=== PATIENT | female | born 1990 | race Caucasian/White ===

== ENCOUNTER 2018-06-30 15:24 | Emergency (ER) | payer MEDICAID, SELFPAY ==
[2018-06-30 15:43] VITALS: BP 127/79; PULSE 66; RESP 18; TEMP 36.7; O2SAT 98
--- NOTE | 2018-06-30 16:11 | DI.RPTCT_ITS ---
SYMPTOM/DIAGNOSIS: HEADACHE NONCONTRAST HEAD CT: There is no evidence of an intra/extra-axial hemorrhage. The wong white matter differentiation is maintained. There is no edema. The ventricles are normal. There is no skull fracture. The sinuses are normal. There is no evidence of a mastoid effusion. SUMMARY: No acute intracranial abnormality is defined.
--- NOTE | 2018-06-30 16:18 | ED.GENADUL ---
Disposition Clinical Impression: Headache Disposition: HOME Instructions: General Headache (ED) Additional Instructions: Please follow-up with your primary care physician and neurology. Return to the emergency department immediately for any worsening or new concerning symptoms. Referrals: Lauren Dupont NP [Primary Care Provider] - Maria Salcedo MD [ [facility] STAFF PHYSICIAN] - Medical Decision Making - Medical Decision Making 16:25 --27-year-old female here with burning headache over the past 1 month with associated sharp pain with paresthesias effecting fingertips and feet bilaterally. No signs of meningitis or focal deficits on exam. History not consistent with subarachnoid hemorrhage. Plan to proceed to CT head to assess for any mass occupying lesions. Consider idiopathic intracranial hypertension versus cerebral sinus thrombosis. Offered ibuprofen and acetaminophen and patient declined. 18:45 -- CT head interpreted by radiology: negative. Labs reviewed and nondiagnostic. I reassessed patient and discussed diagnostic results. I explained my concerns for disease processes as noted above and answered questions. I offered lumbar puncture and reviewed the risks and benefits of this procedure and patient declined procedure at this time. Patient would prefer to follow-up with neurology. I recommended she return immediately should she have any worsening or new concerning symptoms. Offered work note and patient declined. History of Present Illness - General Chief complaint: Headache Stated complaint: HEADACHE Time Seen by Provider: 06/30/18 15:26 Source: patient, RN notes reviewed Mode of arrival: ambulatory Limitations: no limitations - History of Present Illness Initial comments: 27-year-old female presents with chief complaint of headache. Patient notes a 4/10 discomfort in the top of her head is described as burning and jittery. Pain started about 1 month ago and has persisted. Patient has pain consistently over the past month. She also notes that she experiences intermittent (every few minutes) brief sharp pain in her head with associated paresthesias in the tips of her fingers bilaterally as well as her feet bilaterally with a period of brief blurred vision lasting seconds. Patient has tried taking Tylenol and ibuprofen this does not seem to provide relief. Patient denies associated fever. No neck stiffness. No numbness or weakness. There is mention of genital herpes in the patient's office problem list. Patient denies this and notes that she has never had genital herpes. Patient stopped taking her Adderall about a month ago as she noted the seem to make her symptoms worse. - Related Data FLUoxetine [PROzac] 10 mg PO QAM 11/18/17 Noreth A-Et Estra/Fe Fumarate [Microgestin Fe 1-20 Tablet] 1 tab-cap PO DAILY #3 pack 02/11/18 Allergies Allergy/AdvReac Type Severity Reaction Status Date / Time Penicillins Allergy Unknown unknown, Unverified 06/30/18 15:49 childhood reaction lisdexamfetamine dimesylate AdvReac Intermediate chest Unverified 06/30/18 15:49 [From Vyvanse] discomfort, throbbing H/A, Tingling in Head Review of Systems Constitutional: denies: chills, fever ENT: denies: throat pain Respiratory: denies: cough, shortness of breath Gastrointestinal: denies: abdominal pain, nausea, vomiting Neurological: as per HPI, headache, paresthesias. denies: weakness, numbness Comment: All other systems reviewed and negative Past Medical History - Past Medical History ADHD, pancreatitis idiopathic, left ovarian cyst Surgical history: no surgical history - Social History Smoking status: never smoker Alcohol use: none Drug use: none General Exam - General Limitations: no limitations General appearance: alert, in no apparent distress - Eye Eye exam: Present: PERRL, EOMI, other (No papilledema). Absent: scleral icterus, conjunctival injection, nystagmus Pupils: Present: normal accommodation - ENT ENT exam: Present: normal orophraynx, mucous membranes moist, TM's normal bilaterally - Neck Neck exam: Absent: meningismus, lymphadenopathy, thyromegaly - Respiratory Respiratory exam: Present: normal lung sounds bilaterally. Absent: wheezes, rales, rhonchi - Cardiovascular Cardiovascular Exam: Present: regular rate, normal rhythm, normal heart sounds - GI/Abdominal GI/Abdominal exam: Present: soft, normal bowel sounds. Absent: distended, tenderness, guarding, rebound, rigid - Extremities Exam Extremities exam: Absent: joint swelling - Neurological Exam Neurological exam: Present: alert, CN II-XII intact. Absent: altered, motor sensory deficit - Psychiatric Psychiatric exam: Present: normal affect - Skin Skin exam: Present: warm, dry, intact Course Vital Signs - 24 hr 06/30/18 15:43 Temperature 36.7 C Pulse 66 Respiratory 18 Rate Blood Pressure 127/79 Pulse Oximetry 98
--- NOTE | 2018-06-30 16:25 | ED.GENADUL_ITS ---
Disposition Clinical Impression: Headache Disposition: HOME Instructions: General Headache (ED) Additional Instructions: Please follow-up with your primary care physician and neurology. Return to the emergency department immediately for any worsening or new concerning symptoms. Referrals: Lauren Dupont NP [Primary Care Provider] - Maria Salcedo MD [ [facility] STAFF PHYSICIAN] - Medical Decision Making - Medical Decision Making 16:25 --27-year-old female here with burning headache over the past 1 month with associated sharp pain with paresthesias effecting fingertips and feet bilaterally. No signs of meningitis or focal deficits on exam. History not consistent with subarachnoid hemorrhage. Plan to proceed to CT head to assess for any mass occupying lesions. Consider idiopathic intracranial hypertension versus cerebral sinus thrombosis. Offered ibuprofen and acetaminophen and patient declined. 18:45 -- CT head interpreted by radiology: negative. Labs reviewed and nondiagnostic. I reassessed patient and discussed diagnostic results. I explained my concerns for disease processes as noted above and answered questions. I offered lumbar puncture and reviewed the risks and benefits of this procedure and patient declined procedure at this time. Patient would prefer to follow-up with neurology. I recommended she return immediately should she have any worsening or new concerning symptoms. Offered work note and patient declined. History of Present Illness - General Chief complaint: Headache Stated complaint: HEADACHE Time Seen by Provider: 06/30/18 15:26 Source: patient, RN notes reviewed Mode of arrival: ambulatory Limitations: no limitations - History of Present Illness Initial comments: 27-year-old female presents with chief complaint of headache. Patient notes a 4 /10 discomfort in the top of her head is described as burning and jittery. Pain started about 1 month ago and has persisted. Patient has pain consistently over the past month. She also notes that she experiences intermittent (every few minutes) brief sharp pain in her head with associated paresthesias in the tips of her fingers bilaterally as well as her feet bilaterally with a period of brief blurred vision lasting seconds. Patient has tried taking Tylenol and ibuprofen this does not seem to provide relief. Patient denies associated fever. No neck stiffness. No numbness or weakness. There is mention of genital herpes in the patient's office problem list. Patient denies this and notes that she has never had genital herpes. Patient stopped taking her Adderall about a month ago as she noted the seem to make her symptoms worse. - Related Data FLUoxetine [PROzac] 10 mg PO QAM 11/18/17 Noreth A-Et Estra/Fe Fumarate [Microgestin Fe 1-20 Tablet] 1 tab-cap PO DAILY # 3 pack 02/11/18 Allergies Allergy/AdvReac Type Severity Reaction Status Date / Time Penicillins Allergy Unknown unknown, Unverified 06/30/18 15:49 childhood reaction lisdexamfetamine dimesylate AdvReac Intermediate chest Unverified 06/30/18 15:49 [From Vyvanse] discomfort, throbbing H/A, Tingling in Head Review of Systems Constitutional: denies: chills, fever ENT: denies: throat pain Respiratory: denies: cough, shortness of breath Gastrointestinal: denies: abdominal pain, nausea, vomiting Neurological: as per HPI, headache, paresthesias. denies: weakness, numbness Comment: All other systems reviewed and negative Past Medical History - Past Medical History ADHD, pancreatitis idiopathic, left ovarian cyst Surgical history: no surgical history - Social History Smoking status: never smoker Alcohol use: none Drug use: none General Exam - General Limitations: no limitations General appearance: alert, in no apparent distress - Eye Eye exam: Present: PERRL, EOMI, other (No papilledema). Absent: scleral icterus , conjunctival injection, nystagmus Pupils: Present: normal accommodation - ENT ENT exam: Present: normal orophraynx, mucous membranes moist, TM's normal bilaterally - Neck Neck exam: Absent: meningismus, lymphadenopathy, thyromegaly - Respiratory Respiratory exam: Present: normal lung sounds bilaterally. Absent: wheezes, rales, rhonchi - Cardiovascular Cardiovascular Exam: Present: regular rate, normal rhythm, normal heart sounds - GI/Abdominal GI/Abdominal exam: Present: soft, normal bowel sounds. Absent: distended, tenderness, guarding, rebound, rigid - Extremities Exam Extremities exam: Absent: joint swelling - Neurological Exam Neurological exam: Present: alert, CN II-XII intact. Absent: altered, motor sensory deficit - Psychiatric Psychiatric exam: Present: normal affect - Skin Skin exam: Present: warm, dry, intact Course Vital Signs - 24 hr 06/30/18 15:43 Temperature 36.7 C Pulse 66 Respiratory 18 Rate Blood Pressure 127/79 Pulse Oximetry 98
[2018-06-30 16:48] LABS: Abs Immature Grans 0.01 k/cumm (0.0-0.09); Absolute Basophil Count 0.02 k/cumm (0.0-0.2); Absolute Eosinophil Count 0.07 k/cumm (0.0-0.7); Absolute Neutrophil Count 5.94 k/cumm (1.2-6.7); Basophils % 0.2; Eosinophils % 0.8; HCT 41.1 % (36.0-46.0); HGB 13.7 g/dL (12.0-15.5); Immature Grans % 0.1; Lymphocytes % 22.5; Mean Corp. HGB Concentration 33.3 g/dL (32.0-36.0); Mean Corpuscular Hemoglobin 28.1 pg (27.0-33.0); Mean Corpuscular Volume 84.2 fL (80-95); Mean Platelet Volume 10.8 fL (8.0-11.0); Monocytes % 5.9; Neutrophils % 70.5; Platelet Count 260 x1000/uL (130-400); RBC 4.88 m/cumm (4.00-5.20); RBC Distribution Width 14.1 % (11.7-14.6); White Blood Cell Count 8.44 k/cumm (4.4-10.8)
[2018-06-30 17:15] LABS: ALT 32 U/L (12-78); AST 23 U/L (15-37); Albumin 4.1 g/dL (3.4-5.0); Alkaline Phosphatase 70 U/L (46-116); BUN 17 mg/dL (7-18); Bilirubin, Total 0.1 mg/dL (0.2-1.0); CREATININE 0.73 mg/dL (0.55-1.02); Calcium 9.2 mg/dL (8.5-10.1); Chloride 103 mmol/L (98-107); Glucose 87 mg/dL (70-100); Potassium 3.9 mmol/L (3.5-5.1); Sodium 139 mmol/L (136-145); TSH (W/Ref FT4) 2.02 uIU/mL (0.358-3.74)
--- NOTE | 2018-06-30 17:22 | DI.VRAD_ITS ---
EXAM: CT Head Without Intravenous Contrast EXAM DATE/TIME: 06/30/2018 4:14 PM CLINICAL HISTORY: 27 years old, female; Signs and symptoms; Other: Headache TECHNIQUE: Axial computed tomography images of the head/brain without intravenous contrast. All CT scans at this facility use at least one of these dose optimization techniques: automated exposure control; mA and/or kV adjustment per patient size (includes targeted exams where dose is matched to clinical indication); or iterative reconstruction. Coronal and sagittal reformatted images were created and reviewed. COMPARISON: No relevant prior studies available. FINDINGS: Brain: Normal. No hemorrhage. No significant white matter disease. No edema. Ventricles: Normal. No ventriculomegaly. Bones/joints: Normal. No acute fracture. Sinuses: Normal as visualized. No acute sinusitis. Mastoid air cells: Normal as visualized. No mastoid effusion. Soft tissues: Normal. IMPRESSION: No acute findings. Dictated and Authenticated by: Manish Ratliff MD. Ordering:FREDDY DENNIS MD
[2018-06-30] MEDS: Acetaminophen 325 MG TAB 650 MG (18:35)
== END 2018-06-30 18:57 | disposition home or self-care (01) ==
PROVIDERS: Emergency Provider Student in an Organized Health Care Education/Training Program; PCP Nurse Practitioner Family
DX: R51 Headache (principal); R20.2 Paresthesia of skin; Z53.29 Procedure and treatment not carried out because of patient's decision for other reasons
CPT/HCPCS: 36415; 80053; 81025; 99284; 70450; 84443; 85025

== ENCOUNTER → 2018-07-08 00:32 | Outpatient (CLI) | payer MEDICAID, SELFPAY ==
--- NOTE | 2018-07-08 09:35 | DI.REPORT_ITS ---
SYMPTOM/DIAGNOSIS: CHRONIC NON-INTRACTABLE HEADACHE, UNSPECIFIED TYPE R51, BLURRED VISION R53.8 BRAIN MRI: 07/08/18 MRI examination of the brain was performed according to the usual protocol. Ventricular system is normal in appearance. No signal abnormality identified in the brain. There is normal flow void in the [place] vasculature. The orbital and temporal bone structures appear intact. Diffusion weighted imaging is within normal limits with no evidence of cerebral infarction. Susceptibility weighted imaging shows no evidence of hemorrhage. CONCLUSION: Normal brain MRI.
== END ==
PROVIDERS: PCP Nurse Practitioner Family; Visit Provider Nurse Practitioner Adult Health
DX: R51 Headache (principal); H53.8 Other visual disturbances
CPT/HCPCS: 70551

== ENCOUNTER 2018-08-27 00:19 | Outpatient (CLI) | payer SELFPAY ==
--- NOTE | 2018-08-27 07:28 | DI.US_ITS ---
SYMPTOM/DIAGNOSIS: UPPER ABD PAIN, R10.10, ? HEPATOBILIARY OR PANCREATIC ETIOLOGY, H/O PANCREATITIS ABDOMEN ULTRASOUND: Routine examination was performed. The aorta and IVC are unremarkable. The liver is normal in size. There is diffuse increased echogenicity of the liver consistent with fatty infiltration. No evidence of a hepatic mass is seen. The gallbladder, bile duct, spleen and kidneys are unremarkable. The tail of the pancreas could not be visualized but the remainder of the pancreas is unremarkable. IMPRESSION: Hepatic steatosis.
[2018-08-27 08:35] LABS: Abs Immature Grans 0.01 k/cumm (0.0-0.09); Absolute Basophil Count 0.02 k/cumm (0.0-0.2); Absolute Eosinophil Count 0.07 k/cumm (0.0-0.7); Absolute Lymphocyte Count 1.67 k/cumm (1.2-3.4); Absolute Monocyte Count 0.41 k/cumm (0.11-0.7); Absolute Neutrophil Count 4.23 k/cumm (1.2-6.7); Basophils % 0.3; Eosinophils % 1.1; HCT 40.9 % (36.0-46.0); HGB 13.4 g/dL (12.0-15.5); Immature Grans % 0.2; Lymphocytes % 26.1; Mean Corp. HGB Concentration 32.8 g/dL (32.0-36.0); Mean Corpuscular Hemoglobin 27.7 pg (27.0-33.0); Mean Corpuscular Volume 84.5 fL (80-95); Mean Platelet Volume 10.5 fL (8.0-11.0); Monocytes % 6.4; Neutrophils % 65.9; Platelet Count 265 x1000/uL (130-400); RBC 4.84 m/cumm (4.00-5.20); White Blood Cell Count 6.41 k/cumm (4.4-10.8)
[2018-08-27 09:46] LABS: Hemoglobin A1C 5.8 % (4.5-6.2)
[2018-08-27 10:00] LABS: ALT 35 U/L (12-78); AST 23 U/L (15-37); Albumin 4.1 g/dL (3.4-5.0); Alkaline Phosphatase 59 U/L (46-116); Anion Gap 7.7 mmol/L (3-11); BUN 15 mg/dL (7-18); Bilirubin, Total 0.3 mg/dL (0.2-1.0); CO2 30.3 mmol/L (21.0-32.0); CREATININE 0.64 mg/dL (0.55-1.02); Calcium 9.3 mg/dL (8.5-10.1); Chloride 102 mmol/L (98-107); Glucose 92 mg/dL (70-100); Lipase 143 U/L (73-393); Potassium 4.4 mmol/L (3.5-5.1); Sodium 140 mmol/L (136-145); TSH (W/Ref FT4) 0.83 uIU/mL (0.358-3.74); Total Protein 7.2 g/dL (6.4-8.2)
== END 2018-08-27 00:39 ==
PROVIDERS: PCP Nurse Practitioner Family; Visit Provider Nurse Practitioner Family
DX: R42 Dizziness and giddiness (principal); R10.10 Upper abdominal pain, unspecified; K76.0 Fatty (change of) liver, not elsewhere classified
CPT/HCPCS: 36415; 80053; 83690; 76700; 83036; 84443; 85025

== ENCOUNTER 2019-02-12 11:02 | Outpatient (REF) | payer OTHER, SELFPAY ==
--- NOTE | 2019-02-12 10:30 | PAPFT_PTH ---
PATIENT: Lb Robins LOC: [facility] U#:[id number] AGE/SX: 28/F ROOM: RE02/12/[address]: Caprice Wyatt NP : 1990 BED: DIS: 02/12/2019 SPEC #: [id number] RECD: 02/12/19 12:50 STATUS: ROBERT WATTS #: [id number] ELZA: 02/12/19 10:[address]: Caprice Wyatt NP DEPT: [facility] Cytology RECD BY: Xena Cheung ENTERED: 02/12/19 12:51 SP TYPE: PAPFT OTHR DR: Lauren Dupont, JANET Tissues: 1 - CX/ENDOCX FOR PAP SMEARS Procedures: PAP THIN PREP/UVM Screening Comments: [id number]
== END 2019-02-12 11:22 ==
LOC: LBN 11:02
PROVIDERS: PCP Nurse Practitioner Family; Visit Provider Nurse Practitioner Women's Health
DX: Z12.4 Encounter for screening for malignant neoplasm of cervix (principal)
CPT/HCPCS: 88142

== ENCOUNTER 2019-02-18 00:22 | Outpatient (CLI) | payer OTHER, SELFPAY ==
[2019-02-18] MEDS: Omnipaque 350 MG/ML 50 ML BTL PO (08:17)
[2019-02-18] MEDS: Breeza Beverage 473 ML BTL PO ×2 (08:17→08:18)
[2019-02-18] MEDS: Omnipaque 350 MG/ML 100 ML BTL IJ (09:51)
--- NOTE | 2019-02-18 09:58 | DI.CT_ITS ---
SYMPTOM/DIAGNOSIS: MID UPPER PAIN, ? HERNIA VS INTUSSUSCEPTION VS MASS, H/O JEJUNAL INTUSSUSCEPTION, NORMAL US ABDOMEN AND PELVIC CT: The study was carried out with an intravenous injection of 100 cc's of Omnipaque 350 and oral ingestion of dilute contrast material. There is some small regions of dependent atelectasis in the lung bases. There is no pleural effusion. The heart is not enlarged. There is no pericardial effusion. The liver and gallbladder appear intact. There is no evidence of cholelithiasis. There is no ductal dilatation. The pancreas and kidneys and adrenals are normal. There is no evidence of bowel obstruction. No localized bowel abnormality is apparent. There is no evidence of an acute appendix. There is no evidence of free air or free fluid in the intraperitoneal space. The bladder is unremarkable. The reproductive organs as visualized appear unremarkable. There is no evidence of an aortic aneurysm. Note is made of a small fat containing umbilical hernia. There is no evidence of incarceration. The bony structures are unremarkable. IMPRESSION: The examination is unremarkable save for a small fat containing umbilical hernia. There is nothing to suggest an acute abdomen.
== END 2019-02-18 00:42 ==
PROVIDERS: PCP Nurse Practitioner Family; Visit Provider Nurse Practitioner Family
DX: R10.10 Upper abdominal pain, unspecified (principal); K42.9 Umbilical hernia without obstruction or gangrene
CPT/HCPCS: 74177; J3490; Q9967

== ENCOUNTER 2019-03-19 13:51 | Emergency (ER) | payer OTHER, SELFPAY ==
[2019-03-19 13:55] VITALS: BP 145/72; PULSE 66; RESP 16; TEMP 36.6; O2SAT 97
--- NOTE | 2019-03-19 14:27 | W.ED.GENAD ---
Discharge Plan Disposition Patient Disposition: HOME Condition: Improving Discharge Details Chief Complaint: DentalOral Clinical Impression: Pain, dental Primary Care Provider: Lauren Dupont ED Provider: Rajat Fuentes Home Meds and New Rx's Prescriptions: No Action No Known Home Meds RF: 0 Discharge Instructions Instructions: Toothache (ED) Additional Instructions: For continued pain continue to take 600 mg of ibuprofen along with 650 mg of acetaminophen every 6 hours. You may also apply ice to your lower jaw and use [id number] toothache medication as needed. Please call your dentist for arrangement of follow-up appointment and definitive care. Return to emergency department for any new or significant worsening of symptoms such as swelling to your face tongue or jaw, fever chills, difficulty breathing or any further concerns you may have. Referrals: [facility] [Provider Group] Discharge Data Discharge Date/Time-TO BE ENTERED AT DEPARTURE: 03/19/19 15:10 Medical Decision Making Patient presenting the emergency department for chief complaint of dental pain. Patient states that pain started 4 days ago and that a while ago she had broken off a portion of her filling. She did have some clindamycin that was saved from previous episode and took 5 doses which did not help her symptoms at all. Physical exam shows a partial fracture of tooth #18 with very minimal tooth loss, no surrounding erythema fluctuance or gumline changes. I doubt this is infected but more concern for dental pain due to previous filling and cavity. Discussed risk versus benefit with patient of dental block for pain which after discussion she gave verbal consent for dental block. 1% lidocaine was mixed with 0.25% bupivacaine and 1.5 mL's was injected into the alveolar space of the tooth. Patient tolerated procedure appropriately. Patient observed and had no side effects and had moderate amount of improvement of discomfort. Patient encouraged to watch for signs of infection that were thoroughly discussed to return to emergency department if this occurs otherwise to follow-up with [facility] next week for definitive care. After discussion of diagnosis and plan of care patient has no further needs, questions, or concerns and states clear understanding to return to the emergency department for any worsening symptoms. HPI General Mode of arrival: ambulatory. Date/Time Provider Initiated Documentation: 03/19/19 14:00. Limitations to Documentation: no limitations. Information obtained by: patient. History of Present Illness 28 year old F presents to the emergency department with the chief complaint of Dental pain, described as moderate, with intensity rated at 5. Quality is described as aching, and is localized to the mouth. Patient started experiencing this day(s) (4) and it has been constant. No relieving factors improve symptom(s), Patient notes no other symptoms.. Patient did receive the following treatments prior to arrival, NSAID and other (Clindamycin, 5 doses) Related Data Home Medications Medication Instructions Recorded Confirmed Unknown [No Known Home Meds] 03/19/19 03/19/19 Allergies Allergy/AdvReac Type Severity Reaction Status Date / Time Penicillins Allergy Unknown unknown, Unverified 03/19/19 13:58 childhood reaction lisdexamfetamine dimesylate AdvReac Intermediate chest Unverified 03/19/19 13:58 [From Vyvanse] discomfort, throbbing H/A, Tingling in Head General Stated Complaint: DentalOral RUBIA: 4 Review of Systems Constitutional Denies chills and Denies fever(s) ENT Reports as per HPI, Denies change in voice, Reports dental pain, Denies throat swelling and Denies tongue swelling Cardiovascular Denies chest pain and Denies dyspnea Respiratory Denies dyspnea, Denies stridor and Denies wheezing Allergic/Immunologic Denies throat swelling, Denies tongue swelling and Denies wheezing FOR[facility]LY [facility], [facility] Medical History PTSD (post-traumatic stress disorder) (Chronic) Intussusception of jejunum (Inactive 09/09/17) Insomnia (Chronic) Genital herpes simplex (Inactive) Generalized abdominal pain (Chronic 09/09/17) Ganglion cyst of finger of right hand (Chronic 02/11/18) Chronic right-sided low back pain without sciatica (Chronic 02/11/18) Attention-deficit hyperactivity disorder, unspecified type (Chronic) Anxiety and depression (Chronic) ADHD (attention deficit hyperactivity disorder) Anxiety and depression Genital herpes Insomnia Ovarian cyst PTSD (post-traumatic stress disorder) Surgical History cyst excision (03/02/18) Family History Mother Mental disorder Maternal Uncle Diabetes Heart attack Father No problems noted. Sister No problems noted. Brother No problems noted. Social History Smoking/Tobacco Use Status: Never Alcohol Intake: current Alcohol Intake frequency: holidays/special occasions only Drug use: Never Substance use type: does not use Adopted: No Caregiver/Support person: No Foster care: No Household members: significant other and children Number of Children: 1 current occupation: [employer] Pets and animals: Yes Pets and animals: dog(s) What type of physical activity do you participate in: regular exercise Duration: 30-45 minutes/day Frequency: 3-4 times per week Do you feel safe in your relationship?: Yes Female Reproductive History Menstrual control method: none History History 1 Para 1 Hx # Term Pregnancies Multiple births Hx # Pregnancies Ectopic pregnancies AB induced Hx Number of Living Children AB spontaneous Exam Const General: cooperative Orientation: alert, awake and oriented x3 Limitations: mental status not altered HENMT Head: normal to inspection, normocephalic and atraumatic Ears: hearing grossly normal bilaterally, normal mastoids bilaterally and no periauricular adenopathy General nose exam: external nose normal Mouth: oropharynx normal, no drooling, no muffled voice, normal tongue and no trismus Teeth and gingiva: gingiva normal, caries and other (Small fracture of tooth noted to #18 next to previous filling.) Throat: posterior oropharynx normal, tonsils normal and uvula midline Eyes General: appearance normal, both eyes and all related structures Pupils: PERRL Neck Neck: normal visual inspection, full ROM, no lymphadenopathy, no meningeal signs, trachea midline, supple, no anterior neck swelling and no midline deformity Resp Effort & Inspection: normal respiratory effort and able to speak in complete sentences Course Vital Signs Temperature 36.6 C 03/19/19 13:55 Pulse 66 03/19/19 13:55 Respiratory Rate 16 03/19/19 13:55 Blood Pressure 145/72 H 03/19/19 13:55 Pulse Oximetry 97 03/19/19 13:55 Temperature 36.6 C 03/19/19 13:55 Temperature Source Skin 03/19/19 13:55 Pulse 66 03/19/19 13:55 Respiratory Rate 16 03/19/19 13:55 Respiratory Effort Non-Labored 03/19/19 13:55 Blood Pressure 145/72 H 03/19/19 13:55 Blood Pressure Position Sitting 03/19/19 13:55 Pulse Oximetry 97 03/19/19 13:55 Oxygen Delivery Method Room Air 03/19/19 13:55 Oxygen Flow Rate 0 03/19/19 13:55 Pain Level 5 03/19/19 13:55
[2019-03-19] MEDS: Acetaminophen 325 MG TAB 650 MG PO (14:40)
[2019-03-19] MEDS: Ibuprofen 600 MG TAB PO (14:40)
== END 2019-03-19 15:10 | disposition home or self-care (01) ==
PROVIDERS: Emergency Provider Nurse Practitioner Family; PCP Nurse Practitioner Family
DX: R68.84 Jaw pain (principal); S02.5XXA Fracture of tooth (traumatic), initial encounter for closed fracture; X58.XXXA Exposure to other specified factors, initial encounter
CPT/HCPCS: 64402

== ENCOUNTER 2019-05-30 13:45 | Emergency (ER) | payer OTHER, SELFPAY ==
[2019-05-30 13:48] VITALS: BP 139/85; PULSE 82; RESP 16; TEMP 36.7; O2SAT 99
--- NOTE | 2019-05-30 14:00 | W.ED.GENAD ---
Discharge Plan Disposition Patient Disposition: HOME Condition: Good Discharge Details Chief Complaint: DentalOral Clinical Impression: Pain, dental Primary Care Provider: Lauren Dupont ED Provider: Reymundo Gomez Home Meds and New Rx's Prescriptions: New clindamycin HCl 150 mg capsule 450 mg PO TID 7 Days Qty: 63 RF: 0 Discharge Instructions Instructions: Toothache (ED) Additional Instructions: You have fractured your tooth but you also have an infection in the base of the tooth. Please take the antibiotic as directed. Please take it with yogurt with live cultures and probiotics to prevent any diarrhea. Please take Tylenol and Motrin for control of the pain. Please follow-up closely with your dentist for complete removal of the tooth. If you notice any worsening of your symptoms, or any new symptoms such as vomiting, diarrhea, fever, chills, shortness of breath, chest pain, numbness, weakness, or fainting , please return immediately to the emergency department for reevaluation. Please follow up with your primary care provider as soon as possible for reassessment and reevaluation. As always, it was a pleasure participating in your medical care today. Stand Alone Forms: Work Release Referrals: Lauren Dupont, LOLA [Primary Care Provider] - Medical Decision Making This is a 28-year-old female who presents for right upper molar dental pain. She fractured her tooth yesterday and has had pain since then which is developed into a mild headache. Signs and symptoms are inconsistent with meningitis, or any acute intracranial pathology. She does demonstrate a fractured upper right molar, with no evidence of periapical abscess but there is evidence of infection in the fractured molar component that is left. Dental block was provided and the patient had complete resolution of her pain. She tolerated this well. Due to the evidence of mild infection in the tooth we will start patient on clindamycin secondary to her penicillin allergy. We discussed red flags which to return. The patient will be contacting her dentist tomorrow morning. I have extensively reviewed the treatment plan and discharge instructions with the patient. I have addressed all patient concerns at this time. The patient was made aware of what symptoms to monitor for that would warrant a return to the emergency department. Discussed the plan with the patient, they demonstrate verbal understanding and agreement with our assessment and plan at this time. HPI General Date/Time Provider Initiated Documentation: 05/30/19 13:49. HPI Narrative: This is a 28-year-old female with no significant past medical history aside for penicillin allergy who presents today for evaluation of top right dental pain. The patient states that yesterday she was biting something when she felt her back top right molar break. Since then she has had notable pain in the right upper molar space. This is continued and has caused a mild headache as well. She denies any fever, discharge, nausea vomiting, diarrhea, difficulty swallowing. The patient denies any headache red flags of worst headache of life, thunderclap headache, neck pain, fever, chills, concerning family history of polycystic kidney disease, Marfan syndrome, Heriberto-Danlos syndrome, abdominal aortic aneurysm, aortic dissection, or intracranial aneurysm. Related Data Home Medications Medication Instructions Recorded Confirmed clindamycin HCl 450 mg PO TID 7 Days #63 cap 05/30/19 Previous Rx's Medication Instructions Recorded clindamycin HCl 450 mg PO TID 7 Days #63 cap 05/30/19 Allergies Allergy/AdvReac Type Severity Reaction Status Date / Time Penicillins Allergy Unknown unknown, Unverified 05/30/19 13:55 childhood reaction lisdexamfetamine dimesylate AdvReac Intermediate chest Unverified 05/30/19 13:55 [From Vyvanse] discomfort, throbbing H/A, Tingling in Head General Stated Complaint: DentalOral RUBIA: 4 Review of Systems Review of Systems All systems reviewed & are unremarkable except as noted in HPI and below PFSH Social History Smoking/Tobacco Use Status: Never Alcohol Intake: current Alcohol Intake frequency: holidays/special occasions only Drug use: Never Substance use type: does not use Adopted: No Caregiver/Support person: No Foster care: No Household members: significant other and children Number of Children: 1 current occupation: [employer] Pets and animals: Yes Pets and animals: dog(s) What type of physical activity do you participate in: regular exercise Duration: 30-45 minutes/day Frequency: 3-4 times per week Do you feel safe in your relationship?: Yes Female Reproductive History Menstrual control method: none History History 1 Para 1 Hx # Term Pregnancies Multiple births Hx # Pregnancies Ectopic pregnancies AB induced Hx Number of Living Children AB spontaneous Exam Narrative Exam Narrative: 1.Const: Well-nourished, Well-developed, appearing stated age 2.Eyes: PERRL, no conjunctival injection, and symmetrical lids. 3.ENT: Atraumatic external nose and ears. Moist MM. Neck: Symmetric, trachea midline, No thyromegaly. The patient has notably good dentition aside for her right upper posterior molar which is fractured, down to the gum base. There is evidence of a dental carry noted in the molar. No evidence of periapical abscess. No active drainage. No significant swelling of the face, head or neck. No evidence of airway compromise. No significant trismus. Patient demonstrates good movement of cervical neck. There is no nuchal rigidity, no nuchal tenderness. Patient is able to flex the neck without any difficulty or significant pain. Negative Kernig's and Brudzinski sign. 4.CVS: +S1/S2, No murmurs or gallops. Peripheral pulses 2+ and equal in all extremities. Brisk capillary refill in all extremities. 5.RESP: Unlabored respiratory effort. Clear to auscultation bilaterally. No wheezes rales or rhonchi 6.GI: Soft, Nontender/Nondistended, No hepatosplenomegaly. No guarding or rebound. 7.MSK: Normocephalic/Atraumatic, Extremities w/o deformity or ttp No cyanosis or clubbing, Normal movement of all extremities 8.Skin: Warm, Dry. No rashes or lesions. 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 Sensation grossly intact, no focal neurologic deficits. All 6 cardinal planes of vision are fully intact. No evidence of rotatory or vertical nystagmus. The patient demonstrated a normal hctydw-jwan-thjqvl, good dexterity. There was no evidence of dysdiadochokinesia. Patient was able to ambulate without difficulty. There was no wide-based gait. Romberg, and itrc-yk-tzec are both normal on testing. Sensation was intact bilaterally as well as muscle strength bilaterally for all extremities. Patient was able to verbalize butter cup with no slurring, or miss pronunciation. 10.Psych: (AAO) x3. Appropriate mood and affect Course Vital Signs Temperature 36.7 C 05/30/19 13:48 Pulse 82 05/30/19 13:48 Respiratory Rate 16 05/30/19 13:48 Blood Pressure 139/85 05/30/19 13:48 Pulse Oximetry 99 05/30/19 13:48 Temperature 36.7 C 05/30/19 13:48 Temperature Source Skin 05/30/19 13:48 Pulse 82 05/30/19 13:48 Respiratory Rate 16 05/30/19 13:48 Respiratory Effort Non-Labored 05/30/19 13:56 Blood Pressure 139/85 05/30/19 13:48 Pulse Oximetry 99 05/30/19 13:48 Pain Level 12 05/30/19 13:48
== END 2019-05-30 14:10 | disposition home or self-care (01) ==
LOC: ER 14:02
PROVIDERS: Emergency Provider Student in an Organized Health Care Education/Training Program; PCP Nurse Practitioner Family
DX: S02.5XXA Fracture of tooth (traumatic), initial encounter for closed fracture (principal); K12.2 Cellulitis and abscess of mouth; X58.XXXA Exposure to other specified factors, initial encounter
CPT/HCPCS: 99283

== ENCOUNTER 2019-09-17 01:26 | Outpatient (CLI) | payer OTHER, SELFPAY ==
[2019-09-17 15:57] LABS: TSH (W/Ref FT4) 1.08 uIU/mL (0.36-3.74)
[2019-09-20 09:43] LABS: DHEA Sulfate 285 ug/dl (96-512); FSH 4.4 mIU/ml
[2019-09-21 12:29] LABS: Testosterone, Free 0.51 ng/dL (0.06-1.06); Testosterone, Total 30 ng/dL (8-60)
== END 2019-09-17 01:46 ==
PROVIDERS: PCP Nurse Practitioner Family; Visit Provider Nurse Practitioner Women's Health
DX: N92.6 Irregular menstruation, unspecified (principal)
CPT/HCPCS: 36415; 82627; 84402; 84403; 83001; 84443

== ENCOUNTER 2019-10-22 14:03 | Outpatient (REF) | payer OTHER, SELFPAY ==
[2019-10-27 12:40] LABS: Amphetamine Negative ng/mL (Cutoff: 25); Amphetamines Interpretation Negative.; MDA (Ecstasy Metabolite) Negative ng/mL (Cutoff: 25); MDMA (Ecstasy) Negative ng/mL (Cutoff: 25); Methamphetamine Negative ng/mL (Cutoff: 25); Phentermine Negative ng/mL (Cutoff: 25); Pseudoephedrine/Ephedrine Negative ng/mL (Cutoff: 25)
== END 2019-10-22 14:23 ==
LOC: LBN 14:03
PROVIDERS: PCP Nurse Practitioner Family; Visit Provider Nurse Practitioner Family
DX: Z51.81 Encounter for therapeutic drug level monitoring (principal)
CPT/HCPCS: 80324

== ENCOUNTER 2020-07-26 16:51 | Emergency (ER) | payer OTHER, SELFPAY ==
[2020-07-26] VITALS (9 sets, daily range): BP systolic 115–133; BP diastolic 68–80; PULSE 73–84; RESP 16–24; TEMP 36.6; O2SAT 97–99
--- NOTE | 2020-07-26 16:45 | RT.EKG_ITS ---
APPROVED REPORT Exam: Resting ECG Patient Location: E HR:77 bpm ECG Measurements Heart Rate 77 AXIS TX 140 P 69 QRSd 89 QRS 63 QT 384 T 32 QTc 436 Conclusion Sinus rhythm...normal P axis, V-rate 60- 99 TX depression II, III, V3-V6
--- NOTE | 2020-07-26 17:30 | DI.RAD_ITS ---
EXAM: XR CHEST 2V PA LATERAL CLINICAL HISTORY: chest pain TECHNIQUE: 2D digital imaging was performed. COMPARISON: No exams were available for comparison FINDINGS: MEDIASTINUM: Normal. HEART: Normal. PULMONARY VASCULATURE: Normal. LUNGS: Clear. PLEURAL SPACE: No pleural effusion or pneumothorax. BONE:Within normal limits for the patient's age. OTHER FINDINGS:Normal. IMPRESSION: No acute pulmonary findings. DATA REPOSITORY: RADIATION DOSE DELIVERED:
--- NOTE | 2020-07-26 17:47 | W.ED.GENAD ---
Discharge Plan Disposition Patient Disposition: HOME Discharge Details Clinical Impression: Chest pain Primary Care Provider: Nicolasa Jackson ED Provider: Darius Aguayo Home Meds and New Rx's Prescriptions: No Action metformin 500 mg tablet 500 mg PO BID Qty: 60 RF: 3 dextroamphetamine-amphetamine [Adderall XR] 5 mg capsule,extended release 24hr 5 mg PO DAILY MDD 5mg Qty: 28 RF: 0 Hold Instructions: Home Medication placed on hold at Doctor's office escitalopram oxalate 20 mg tablet 20 mg PO DAILY Qty: 90 RF: 3 Discharge Instructions Instructions: Acute Pericarditis (ED), Against Medical Advice (ED) Additional Instructions: Please take ibuprofen over the counter. Take 600mg by mouth every 6-8 hours over the next 1 week. It was recommended that you be admitted to the hospital today for cardiac monitoring overnight. You are leaving against medical advice. You may have lifestyle modifying disease or life-threatening disease that would go undiagnosed and untreated. Your condition may worsen. Please return to emerge department at any time for further work-up and treatment. Please be sure to follow-up with your doctor. Call tomorrow. Referrals: Nicolasa Jackson NP [Primary Care Provider] - Discharge Data Discharge Date/Time-TO BE ENTERED AT DEPARTURE: 07/26/20 19:05 Medical Decision Making 30-year-old female, fairly healthy, presents with persistent chest burning over the past 1 week with associated intermittent palpitations resulting in lightheadedness to near syncope. Chest x-ray was reviewed and interpreted by me: No acute cardiopulmonary disease noted. Official radiologic interpretation pending. Concern for arrhythmia. Screening ECG was reviewed and interpreted by me: Please see report. I am concerned about Q waves inferior lateral as well as RI depression in similar leads. Raises concern for potential pericarditis. Patient is low risk for pulmonary embolism by Wells criteria. Labs reviewed and nondiagnostic. D-dimer negative. Troponin negative. Patient has been observed here in the emerge department for approximately an hour and 40 minutes and has not had any alarms noted on cardiac monitoring. Plan to hospitalize for observation on telemetry. I will give ibuprofen 600 mg orally. 18:40 --I had a discussion with the patient about my diagnostic/treatment plan. She declines plan and wishes to leave against medical advise. I reiterated my concerns to her and explained the risks of leaving prior to completion of workup and treatment. I specifically emphasized the possibility of life-threatening or lifestyle modifying disease that would not be appropriately treated if they leave. She verbalized understanding of my concerns and the potential for life threatening or lifestyle modifying disease. Patient has capacity to make informed decision. I again explained my concerns and urged the patient to stay for treatment as outlined. Patient continued to refuse. I then discussed potential less ideal alternatives to diagnostic/treatment plan as outlines and patient refused. I recommended that the patient follow-up with primary care physician FARIHA or return to the Emergency Department at any time for further treatment. I will ask care management assist in arranging timely outpatient follow-up so that she may have a radiation monitor placed. HPI General Mode of arrival: ambulatory. Date/Time Provider Initiated Documentation: 07/26/20 16:55. Limitations to Documentation: no limitations. Information obtained by: patient. HPI Narrative: 30-year-old female presents with chief complaint of chest discomfort. Patient notes over the past 1 week she has had intermittent palpitations and associated dizziness described as lightheadedness like she might pass out. She notes that she has constant mild burning in her central chest. Palpitations do seem worse after using Adderall. She has stopped using Adderall because of this. Symptoms occur at rest. She denies associated leg swelling or calf pain. No shortness of breath. Related Data Home Medications Medication Instructions Recorded Confirmed metformin 500 mg tablet 500 mg PO BID #60 tab 09/23/19 07/28/20 dextroamphetamine-amphetamine ER 5 5 mg PO DAILY #28 cap MDD 5mg 06/22/20 07/26/20 mg 24hr capsule,extend release escitalopram oxalate 20 mg tablet 20 mg PO DAILY #90 tab 06/22/20 07/28/20 Previous Rx's Medication Instructions Recorded metformin 500 mg tablet 500 mg PO BID #60 tab 09/23/19 dextroamphetamine-amphetamine ER 5 5 mg PO DAILY #28 cap MDD 5mg 06/22/20 mg 24hr capsule,extend release escitalopram oxalate 20 mg tablet 20 mg PO DAILY #90 tab 06/22/20 Allergies Allergy/AdvReac Type Severity Reaction Status Date / Time Penicillins Allergy Unknown unknown, Verified 07/28/20 10:34 childhood reaction lisdexamfetamine dimesylate AdvReac Intermediate chest Verified 07/28/20 10:34 [From Vyvanse] discomfort, throbbing H/A, Tingling in Head General Stated Complaint: Chest Pain RUBIA: 2 Review of Systems All systems reviewed & are unremarkable except as noted in HPI and below Constitutional Constitutional: Denies fever(s) and Reports lethargy Cardiovascular Cardiovascular: Reports as per HPI [facility] Medical History (Updated 07/28/20 @ 12:18 by Lauren Dupont NP) Anxiety and depression Attention-deficit hyperactivity disorder, unspecified type Chronic right-sided low back pain without sciatica (02/11/18) Ganglion cyst of finger of right hand (02/11/18) Genital herpes simplex Idiopathic acute pancreatitis (09/09/17) Insomnia Intussusception of jejunum (09/09/17) Non-obstructing, noted on abd/pelvis CT 05/2017 Keratosis pilaris PTSD (post-traumatic stress disorder) Surgical History cyst excision (03/02/18) ganglion cyst R ring finger-Dr Beard Family History Mother Mental disorder Depression Maternal Uncle Diabetes Heart attack Father No problems noted. Sister No problems noted. Brother No problems noted. Social History Smoking/Tobacco Use Status: Never Alcohol Intake: current Alcohol Intake frequency: holidays/special occasions only Drug use: Never Substance use type: does not use Adopted: No Caregiver/Support person: No Foster care: No Household members: significant other and children Number of Children: 1 current occupation: [employer] Pets and animals: Yes Pets and animals: dog(s) Current gender identity: female What type of physical activity do you participate in: regular exercise Duration: 30-45 minutes/day Frequency: 3-4 times per week Do you feel safe at home: Yes Do you feel safe in your relationship?: Yes Female Reproductive History Menstrual control method: none History History 1 Para 1 Hx # Term Pregnancies Multiple births Hx # Pregnancies Ectopic pregnancies AB induced Hx Number of Living Children AB spontaneous Exam Const General: cooperative and no acute distress HENMT Mouth: moist mucous membranes Eyes Conjunctivae: normal conjunctivae Sclera: normal sclerae Neck Neck: trachea midline and supple Resp Auscultation: clear to auscultation bilaterally, no rales, no rhonchi and no wheezes Cardio Jugular venous pressure: no JVD Rate: regular rate and not tachycardic Rhythm: regular rhythm GI Palpation: soft, not firm, no guarding, no masses, not rigid and nontender Skin General skin exam: no rashes or lesions noted Neuro General: patient alert, patient awake, patient oriented x3 and tone normal Extrem General: no calf tenderness and no edema Psych Appearance: grossly normal Mental Status: mental status grossly normal Course Vital Signs Vital signs: Vital Signs Temperature 36.6 C 07/26/20 17:02 Pulse 84 07/26/20 17:02 Respiratory Rate 24 07/26/20 17:02 Blood Pressure 133/80 07/26/20 17:02 Pulse Oximetry 98 07/26/20 17:02 Temperature 36.6 C 07/26/20 17:02 Temperature Source Temporal Artery Scan 07/26/20 17:02 Pulse 84 07/26/20 17:02 Respiratory Rate 24 07/26/20 17:02 Respiratory Effort Non-Labored 07/26/20 17:32 Respiratory Depth Normal 07/26/20 17:32 Respiratory Pattern Normal 07/26/20 17:32 Blood Pressure 133/80 07/26/20 17:02 Blood Pressure Position Supine 07/26/20 17:02 Pulse Oximetry 98 07/26/20 17:02 Oxygen Delivery Method Room Air 07/26/20 17:02 Oxygen Flow Rate 0 07/26/20 17:02 Pain Level 7 07/26/20 17:02 Comment and states that it is associated with dizzines 07/26/20 17:02
[2020-07-26 17:51] LABS: Abs Immature Grans 0.03 10^3/uL (0.0-0.06); Absolute Basophil Count 0.05 10^3/uL (0.0-0.2); Absolute Eosinophil Count 0.08 10^3/uL (0.0-0.7); Absolute Lymphocyte Count 1.63 10^3/uL (1.2-3.4); Absolute Monocyte Count 0.43 10^3/uL (0.1-0.8); Absolute Neutrophil Count 6.92 10^3/uL (1.2-6.7); Basophils % 0.5; Eosinophils % 0.9; HGB 12.8 g/dL (11.2-15.7); Immature Grans % 0.3; Lymphocytes % 17.8; MCH 28.8 pg (27.0-33.0); MCHC 32.8 % (32.0-36.0); MCV 87.8 fL (80-95); MPV 11.2 fL (8.0-11.0); Monocytes % 4.7; Neutrophils % 75.8; Nucleated RBC 0 %; Platelet Count 259 10^3/uL (130-400); RBC 4.44 10^6/uL (3.93-5.22); RDW 12.4 % (11.7-14.6); RDW-SD 39.9 fL; WBC 9.14 10^3/uL (4.4-10.8)
--- NOTE | 2020-07-26 18:08 | DI.VRAD_ITS ---
PROCEDURE INFORMATION: Exam: XR Chest, 2 Views Exam date and time: 07/26/2020 6:01 PM Age: 30 years old Clinical indication: Chest pain; Type not specified TECHNIQUE: Imaging protocol: XR of the chest Views: 2 views. COMPARISON: No relevant prior studies available. FINDINGS: Lungs: Unremarkable. No consolidation. Pleural space: Unremarkable. No pleural effusion. No pneumothorax. Heart/Mediastinum: Unremarkable. No cardiomegaly. Bones/joints: Unremarkable. IMPRESSION: No acute findings. Dictated and Authenticated by: Gokul Schroeder MD. Ordering:FREDDY Mccoy MD
[2020-07-26 18:11] LABS: ALT 28 U/L (14-59); AST 19 U/L (15-37); Albumin 3.8 g/dL (3.4-5.0); Alkaline Phosphatase 48 U/L (46-116); Anion Gap 9.7 mmol/L (3-11); BUN 17 mg/dL (7-18); Bilirubin, Total 0.2 mg/dL (0.2-1.0); CO2 27.3 mmol/L (21.0-32.0); CREATININE 0.76 mg/dL (0.55-1.02); Calcium 8.8 mg/dL (8.5-10.1); Chloride 104 mmol/L (98-107); Glucose 100 mg/dL (74-106); Magnesium 1.8 mg/dL (1.8-2.4); Potassium 3.4 mmol/L (3.5-5.1); Sodium 141 mmol/L (136-145); Total Protein 6.9 g/dL (6.4-8.2)
[2020-07-26 18:12] LABS: Troponin I < 0.05 ng/mL (<0.06)
[2020-07-26 18:24] LABS: D-Dimer 378 ng/mlFEU (<500)
[2020-07-26] MEDS: Ibuprofen 600 MG TAB PO (19:03)
== END 2020-07-26 19:05 | disposition home or self-care (01) ==
PROVIDERS: Emergency Provider Student in an Organized Health Care Education/Training Program; PCP Nurse Practitioner
DX: R07.9 Chest pain, unspecified (principal); R00.2 Palpitations; R42 Dizziness and giddiness
CPT/HCPCS: 80053; 93005; 99285; 71046; 83735; 84443; 84484; 85025; 85379; 85730; 93010; 99284

== ENCOUNTER 2020-08-02 15:50 | Outpatient (CLI) | payer OTHER, SELFPAY ==
--- NOTE | 2020-08-02 14:50 | DI.US_ITS ---
APPROVED REPORT EXAM: Comprehensive 2D, Doppler, and color-flow Echocardiogram Patient Location: Out-Patient Street Light Inspector: Verena Boykin RDCS (AE) Indications: Chest pain, EKG Changes Other Information Study Quality: Adequate Conclusion Left Ventricle : The left ventricle is normal size. The left ventricular systolic function is normal. The left ventricular ejection fraction is within the normal range. There is normal left ventricular wall thickness. There is normal LV segmental wall motion. The left ventricular diastolic function is normal. LVEF is 60%. Right Ventricle : The right ventricle is normal size. The right ventricular systolic function is norm al. The RVSP is 13.9mmHg. Atria : The left atrium size is normal. The right atrium size is normal. Mitral Valve : The mitral valve is normal in structure. No evidence of mitral valve stenosis. Mild mi tral regurgitation. Great Vessels : The aortic root is normal in size. IVC is normal in size and collapses >50% with insp iration. The ascending aorta is normal in size. Aortic arch is normal in caliber. There is no prior study available for comparison. Please see remainder of study for further details. Wall motion Left Ventricle The left ventricle is normal size. The left ventricular systolic function is normal. The left ventric ular ejection fraction is within the normal range. There is normal left ventricular wall thickness. T here is normal LV segmental wall motion. The left ventricular diastolic function is normal. There is no ventricular septal defect visualized. LVEF is 60%. Right Ventricle The right ventricle is normal size. The right ventricular systolic function is normal. The RVSP is 13 .9mmHg. Atria The left atrium size is normal. The right atrium size is normal. The interatrial septum is intact wit h no evidence for an atrial septal defect. Aortic Valve The aortic valve is normal in structure. Aortic valve is trileaflet. There is no aortic valvular sten osis. No aortic regurgitation is present. Mitral Valve The mitral valve is normal in structure. No evidence of mitral valve stenosis. Mild mitral regurgitat ion. Tricuspid Valve The tricuspid valve is normal in structure. There is no tricuspid valve stenosis. Trace tricuspid reg urgitation. Pulmonic Valve The pulmonary valve is normal in structure. There is no pulmonic valvular stenosis. There is no pulmo aniceto valvular regurgitation. Great Vessels The aortic root is normal in size. The ascending aorta is normal in size. Aortic arch is normal in ca liber. IVC is normal in size and collapses >50% with inspiration. Pericardium There is no pericardial effusion. 2D Dimensions IVSD d PLAX 0.63 cm F: 0.6-1.0 LV Vol A2C d MOD 123.0 mL LVPW d PLAX 0.64 cm F: 0.6 - 1.0 LV Vol A4C d MOD 122.3 mL LVID d PLAX 4.42 cm F: 3.8 - 5.2 LA vol/ BSA A2C s A-L 18.0 mL/m2 LVDs 3.00 cm F: 2.2 - 3.5 LA vol/ BSA A4C s A-L 17.7 mL/m2 Ao Root d 2.33 cm F: 2.7 - 3.3 LA Vol/ BSA Biplane s A-L 19.1 mL/m2 RA Area A4C 11.85 cm2 LA Area A4C s MOD 14.06 cm2 RA Vol/ BSA A4C s A-L 14.1 mL/m2 LA Area A2C s MOD 13.23 cm2 Ao Asc Diam d 2.80 cm F: 2.3 - 3.1 LV EF A4C MOD 59.9 % LV EF Teichholz 59.0 % LV EF A2C MOD 60.2 % LVEF (Gu's) 59.60 % F: 54 - 74 LV EF Biplane MOD 59.6 % LV Volume 95.00 mL F: 46 - 106 SV 73.89 mL LV Volume Index 50.80 mL/m2 F: 29 - 61 SV Index 39.35 mL/m2 LV Vol Biplane MOD 124.0 mL FS 31.00 % M-Mode TAPSE 2.23 cm (M/F) >1.7 LV Diastology MV E' medial 0.121 (>0.07 m/s) E/A Ratio 1.7 LV E/e MED 7.60 (<14) MV E Vmax 0.92 (0.4-1.3 m/s) MV E' lateral 0.192 (>0.1 m/s) MV A Vmax 0.55 (0.4-1.3 m/s) LV E/e LAT 4.80 (<14) MV E/A Ratio 1.61 MV E/E' medial 7.61 MV E/E' lateral 4.81 Aortic Valve LVOT Vmax 1.11 m/s JENA 2.99 cm2 LVOT Mean Jake. 0.68 m/s JENA Index 1.59 cm2/m2 LVOT Peak Grad 4.9 mmHg AoV Area Vmax 2.74 cm2 LVOT Mean Grad 2.3 mmHg AoV Area/ BSA (Vmax) 1.46 cm2/m2 LVOT VTI 0.231 m JENA Mean Jake. 2.46 cm2 LVOT Diam s 2.00 cm JENA Mean Jake. Index 1.31 cm2/m2 AoV Vmax 1.32 m/s Velocity Ratio 0.84 AoV Mean Jake. 0.91 m/s AoV Peak Grad 7.0 mmHg AoV Mean Grad 3.8 mmHg AoV VTI 0.253 m Mitral Valve MV DT 215 (160-240 msec) MR Vmax 5.12 m/s MV PHT 62 msec MR VTI 1.747 m MV Area PHT 3.52 cm2 MR Peak Grad 104.7 mmHg MV VTI 0.361 m MR Mean Grad 74.8 mmHg MV VTI Annulus 0.366 m MR PISA Radius 0.31 cm MR EROA 0.04 cm2 MR Aliasing Velocity 0.35 m/s MR PISA 0.59 cm2 Pulmonary Valve PV Vmax 0.98 (0.5-1.5 m/s) RVOT Peak Gr. 2.43 mmHg PV Peak Grad 3.8 mmHg RVOT Mean Gr. 1.20 mmHg PV Mean Grad 2.2 mmHg RVOT VTI 0.173 m PV VTI 0.216 m RVOT Vmax 0.78 m/s Tricuspid Valve TR Peak Grad 10.8 mmHg TR Vmax 1.65 m/s RA Pressure 3.00 mmHg RVSP (TR) 13.9 mmHg
== END 2020-08-02 16:10 ==
PROVIDERS: PCP Nurse Practitioner; Visit Provider Nurse Practitioner Family
DX: R07.9 Chest pain, unspecified (principal); R94.31 Abnormal electrocardiogram [ECG] [EKG]; I34.0 Nonrheumatic mitral (valve) insufficiency
CPT/HCPCS: 93306

== ENCOUNTER 2021-03-14 13:31 | Emergency (ER) | payer OTHER, SELFPAY ==
--- NOTE | 2021-03-14 13:30 | RT.EKG_ITS ---
APPROVED REPORT Exam: Resting ECG Patient Location: E HR:66 bpm ECG Measurements Heart Rate 66 AXIS NH 142 P 30 QRSd 87 QRS 59 QT 390 T 35 QTc 409 Conclusion Sinus rhythm...normal P axis, V-rate 60- 99. No STEMI. No change from previous. I have reviewed and interpreted ECG and agree with software generated interpretation.
[2021-03-14 13:37] VITALS: BP 136/84; PULSE 79; RESP 16; TEMP 36.5; O2SAT 99
--- NOTE | 2021-03-14 13:53 | ED.GENADUL_ITS ---
Discharge Plan Disposition Patient Disposition: HOME Condition: Stable Discharge Details Clinical Impression: Chest wall pain, Palpitations, Chronic chest pain, Headache, Paresthesias in left hand Primary Care Provider: Nicolasa Jackson ED Provider: Josefina Ferguson Home Meds and New Rx's Prescriptions: Continued metformin 500 mg tablet 500 mg PO BID Qty: 180 RF: 3 dextroamphetamine-amphetamine [Adderall XR] 5 mg capsule,extended release 24hr 5 mg PO DAILY MDD 5mg Qty: 28 RF: 0 dextroamphetamine-amphetamine [Adderall XR] 5 mg capsule,extended release 24hr 5 mg PO DAILY MDD 5mg Qty: 28 RF: 0 Hold Instructions: Home Medication placed on hold at Doctor's office dextroamphetamine-amphetamine [Adderall XR] 5 mg capsule,extended release 24hr 5 mg PO DAILY MDD 5mg Qty: 28 RF: 0 sertraline 100 mg tablet 100 mg PO DAILY Qty: 90 RF: 3 Discharge Instructions Instructions: Heart Palpitations (ED), Chest Wall Pain (ED), General Headache (ED) Additional Instructions: Apply ice to the affected area several times daily for 20 minutes at a time. Alternate tylenol and motrin as needed and directed for pain. Take the Ativan as needed and directed for palpitations, chest pain or feelings of anxiety. Return the classroom monitor to the hospital as directed. Follow-up with your primary care doctor in 1 week for reevaluation and for referral to cardiology for further evaluation of your chest pain and palpit ations. Return to the emergency department with any worsening or new concerning symptoms. Discharge Data Discharge Date/Time-TO BE ENTERED AT DEPARTURE: 03/14/21 15:50 Discharge Physician: Josefina Ferguson Medical Decision Making 30-year-old female with a history of anxiety, depression, ADHD, PTSD who presents to the ED with a complaint of intermittent chest pain, palpitations and shortness of breath that occurs with exertion and intermittent left hand tingling for the past 2 weeks. Also complaining of intermittent headache and dizziness. Patient was seen here in the ED in July 2020 and had a negative work-up and was referred for an echocardiogram which noted: Conclusion Left Ventricle : The left ventricle is normal size. The left ventricular systolic function is normal. The left ventricular ejection fraction is within the normal range. There is normal left ventricular wall thickness. There is normal LV segmental wall motion. The left ventricular diastolic function is normal. LVEF is 60%. Right Ventricle : The right ventricle is normal size. The right ventricular systolic function is normal. The RVSP is 13.9mmHg. Atria : The left atrium size is normal. The right atrium size is normal. Mitral Valve : The mitral valve is normal in structure. No evidence of mitral valve stenosis. Mild mitral regurgitation. Great Vessels : The aortic root is normal in size. IVC is normal in size and collapses >50% with inspiration. The ascending aorta is normal in size. Aortic arch is normal in caliber. There is no prior study available for comparison. Please see remainder of study for further details. Patient is texting on phone on the chair in triage and appears in no acute distress. Her vitals are within normal limits. Her EKG notes a rate of 66, sinus, no STEMI, nondiagnostic and no change from previous EKG. Differential diagnoses includes PE, anxiety, arrhythmia, electrolyte abnormality, chest wall pain, GERD, ACS, etc. History and presentation not c/w dissection. Will check screening labs, cxr, CT head and give a dose of toradol and IVF and reassess. Labs and imaging reviewed and unremarkable. D dimer and troponin negative. CT head and CXR negative for acute findings. Pt reassessed and she appears in no acute distress, texting on phone. Pt feels comfortable going home. Will place a 48hr holter monitor. She is advised to f/u with her pcp and cardiology. Usual and customary return precautions given prior to discharge. Medical Records Medical records reviewed: Yes I reviewed the patient's medical records. Imaging Data Radiologic Study: Radiologist's impression: CT HEAD WO CLINICAL HISTORY: headache, dizziness, L hand tingling, r/o cva. TECHNIQUE: Imaging Protocol: Axial computed tomography images with coronal and sagittal reformatted images were created and reviewed COMPARISON: CT HEAD WITHOUT CONTRAST from 06/30/2018 FINDINGS: There are no skull fractures nor fluid in the visualized paranasal sinuses. There is no evidence of intracranial hemorrhage, mass effect, or shift of midline structures. There are no extra-axial fluid collections. The ventricles are not enlarged or shifted and there is no blood within the ventricular system nor within the basal cisterns. There is a small area of hypodensity on the left side which is unchanged from the 2018 study and is possibly a small sub lenticular cyst. IMPRESSION: No acute intracranial findings on this noninfused CT scan of the brain. No significant change compared to the prior CT scan performed June 2018. XR CHEST 2V PA LATERAL CLINICAL HISTORY: L chest pain, r/o acute disease. TECHNIQUE: 2D digital imaging was performed. COMPARISON: CR,XR XR CHEST 2V PA LATERAL from 07/26/2020 FINDINGS: Heart size is normal. The mediastinum is not widened. Lungs are clear. No infiltrates nor pleural effusions. IMPRESSION: No acute pulmonary findings. No significant change compared to 07/26/2020 Lab Data Lab results reviewed: Yes I reviewed the patient's lab results. Labs: Laboratory Tests Range/Units 03/14/21 03/14/21 03/14/21 13:55 13:55 13:55 WBC (4.4-10.8) 10^3/uL 6.81 RBC (3.93-5.22) 10^6/uL 4.84 Hgb (11.2-15.7) g/dL 14.3 Hct (36.0-46.0) % 43.1 MCV (80-95) fL 89.0 MCH (27.0-33.0) pg 29.5 MCHC (32.0-36.0) % 33.2 RDW (11.7-14.6) % 12.4 Plt Count (130-400) 10^3/uL 283 MPV (8.0-11.0) fL 10.7 Immature Gran % 0.3 Neutrophils % 73.4 Lymphocytes % 20.0 Monocytes % 4.4 Eosinophils % 1.2 Basophils % 0.7 Nucleated RBC % % 0 Absolute Neutrophils (1.2-6.7) 10^3/uL 5.00 Absolute Lymphocytes (1.2-3.4) 10^3/uL 1.36 Absolute Monocytes (0.1-0.8) 10^3/uL 0.30 Absolute Eosinophils (0.0-0.7) 10^3/uL 0.08 Absolute Basophils (0.0-0.2) 10^3/uL 0.05 PT (9.3-11.0) sec 9.9 INR (0.9-1.1) 1.0 APTT (21.0-27.5) sec 24.6 D-Dimer (<500) ng/mlFEU Sodium (136-145) mmol/L 142 Potassium (3.5-5.1) mmol/L 3.8 Chloride (98-107) mmol/L 105 Carbon Dioxide (21.0-32.0) mmol/L 29.2 Anion Gap (3-11) mmol/L 7.8 BUN (7-18) mg/dL 17 Creatinine (0.55-1.02) mg/dL 0.8 Estimated GFR/1.73 m2 (mL/min/1.73m2) >= 60.00 Glucose (74-106) mg/dL 111 H Calcium (8.5-10.1) mg/dL 9.0 Magnesium (1.8-2.4) mg/dL 1.9 Total Bilirubin (0.2-1.0) mg/dL 0.2 AST (15-37) U/L 20 ALT (14-59) U/L 30 Alkaline Phosphatase (46-116) U/L 57 Troponin I (<0.06) ng/mL < 0.05 Total Protein (6.4-8.2) g/dL 7.8 Albumin (3.4-5.0) g/dL 4.1 Range/Units 03/14/21 13:55 WBC (4.4-10.8) 10^3/uL RBC (3.93-5.22) 10^6/uL Hgb (11.2-15.7) g/dL Hct (36.0-46.0) % MCV (80-95) fL MCH (27.0-33.0) pg MCHC (32.0-36.0) % RDW (11.7-14.6) % Plt Count (130-400) 10^3/uL MPV (8.0-11.0) fL Immature Gran % Neutrophils % Lymphocytes % Monocytes % Eosinophils % Basophils % Nucleated RBC % % Absolute Neutrophils (1.2-6.7) 10^3/uL Absolute Lymphocytes (1.2-3.4) 10^3/uL Absolute Monocytes (0.1-0.8) 10^3/uL Absolute Eosinophils (0.0-0.7) 10^3/uL Absolute Basophils (0.0-0.2) 10^3/uL PT (9.3-11.0) sec INR (0.9-1.1) APTT (21.0-27.5) sec D-Dimer (<500) ng/mlFEU 470 Sodium (136-145) mmol/L Potassium (3.5-5.1) mmol/L Chloride (98-107) mmol/L Carbon Dioxide (21.0-32.0) mmol/L Anion Gap (3-11) mmol/L BUN (7-18) mg/dL Creatinine (0.55-1.02) mg/dL Estimated GFR/1.73 m2 (mL/min/1.73m2) Glucose (74-106) mg/dL Calcium (8.5-10.1) mg/dL Magnesium (1.8-2.4) mg/dL Total Bilirubin (0.2-1.0) mg/dL AST (15-37) U/L ALT (14-59) U/L Alkaline Phosphatase (46-116) U/L Troponin I (<0.06) ng/mL Total Protein (6.4-8.2) g/dL Albumin (3.4-5.0) g/dL ECG Data Attestation: I personally reviewed and interpreted this ECG (s) as follows: Interpretation: rate of 66, sinus, no acute ST elevation or depression. HPI General Mode of arrival: ambulatory . Date/Time Provider Initiated Documentation: 03/14/21 13:33 . Limitations to Documentation: no limitations . Information obtained by: patient . HPI Narrative: Pt is a 30yo F who presents to the ED w/ a c/o intermittent chest pain, palpitations, shortness of breath and left hand tingling for the past 2 weeks. She states she feels winded with exertion, specifically walking up stairs. She also admits to intermittent diffuse headache and dizziness. She has had similar symptoms in the past for which she was seen in the emergency department in July 2020. She had a negative work-up at that time and had an outpatient echocardiogram which was normal. Patient states she was advised to follow-up with cardiology at that time but states she did not. She denies fever, blurry vision, nausea, vomiting, diarrhea, abdominal pain, urinary symptoms, new medications, recent travel, recent surgery, leg pain or swelling. Related Data Home Medications Medication Instructions Recorded Confirmed metformin 500 mg tablet 500 mg PO BID #180 tab 10/23/20 10/23/20 dextroamphetamine-amphetamine ER 5 5 mg PO DAILY #28 cap MDD 5mg 01/16/21 01/16/21 mg 24hr capsule,extend release dextroamphetamine-amphetamine ER 5 5 mg PO DAILY #28 cap MDD 5mg 01/16/21 01/16/21 mg 24hr capsule,extend release dextroamphetamine-amphetamine ER 5 5 mg PO DAILY #28 cap MDD 5mg 01/16/2101/16 mg 24hr capsule,extend release sertraline 100 mg tablet 100 mg PO DAILY #90 tab 03/13/21 Previous Rx's Medication Instructions Recorded metformin 500 mg tablet 500 mg PO BID #180 tab 10/23/20 dextroamphetamine-amphetamine ER 5 5 mg PO DAILY #28 cap MDD 5mg 01/16/21 mg 24hr capsule,extend release dextroamphetamine-amphetamine ER 5 5 mg PO DAILY #28 cap MDD 5mg 01/16/21 mg 24hr capsule,extend release dextroamphetamine-amphetamine ER 5 5 mg PO DAILY #28 cap MDD 5mg 01/16/21 mg 24hr capsule,extend release sertraline 100 mg tablet 100 mg PO DAILY #90 tab 03/13/21 Allergies Allergy/AdvReac Type Severity Reaction Status Date / Time Penicillins Allergy Unknown unknown, Verified 01/16/21 09:57 childhood reaction lisdexamfetamine dimesylate AdvReac Intermediate chest Verified 01/16/21 09:57 [From Vyvanse] discomfort, throbbing H/A, Tingling in Head General Stated Complaint: Chest Pain RUBIA: 2 Review of Systems All systems reviewed & are unremarkable except as noted in HPI and below Constitutional Constitutional: Reports as per HPI, Denies chills, Denies fever(s) and Reports headache(s) Eyes Eyes: Denies blurry vision ENT Ears, Nose, Mouth, and Throat: Denies dizziness, Reports headache(s), Denies sore throat and Denies throat swelling Cardiovascular Cardiovascular: Reports chest pain, Reports palpitations and Reports dyspnea Respiratory Respiratory: Denies cough and Reports dyspnea Gastrointestinal Gastrointestinal: Denies abdominal pain, Denies diarrhea and Denies vomiting Genitourinary Genitourinary: Denies hematuria and Denies dysuria Musculoskeletal Musculoskeletal: Denies back pain and Denies numbness Integumentary/Breasts Skin/Breast: Denies lesions and Denies rash Neurologic Neurologic: Denies dizziness, Reports headache(s), Denies localized weakness and Denies numbness Endocrine Endocrine: Reports palpitations Allergic/Immunologic Allergic/Immunologic: Denies throat swelling [facility] Medical History (Updated 03/14/21 @ 15:39 by Jsoefina Ferguson DO) Anxiety and depression Attention-deficit hyperactivity disorder, unspecified type Chronic right-sided low back pain without sciatica (02/11/18) Ganglion cyst of finger of right hand (02/11/18) Genital herpes simplex Idiopathic acute pancreatitis (09/09/17) Insomnia Intussusception of jejunum (09/09/17) Non-obstructing, noted on abd/pelvis CT 05/2017 Keratosis pilaris PTSD (post-traumatic stress disorder) Surgical History cyst excision (03/02/18) ganglion cyst R ring finger-Dr Beard Family History Mother Mental disorder Depression Maternal Uncle Diabetes Heart attack Father No problems noted. Sister No problems noted. Brother No problems noted. Social History Smoking/Tobacco Use Status: Never Smoking risk assessment performed?: Yes Alcohol Intake: current Alcohol Intake frequency: holidays/special occasions only Drug use: Never Substance use type: does not use Adopted: No Caregiver/Support person: No Foster care: No Household members: significant other and children Number of Children: 1 current occupation: [employer] Pets and animals: Yes Pets and animals: dog(s) Current gender identity: female What type of physical activity do you participate in: regular exercise Duration: 30-45 minutes/day Frequency: 3-4 times per week Do you feel safe at home: Yes Do you feel safe in your relationship?: Yes Female Reproductive History Menstrual control method: none History History 1 Para 1 Hx # Term Pregnancies Multiple births Hx # Pregnancies Ectopic pregnancies AB induced Hx Number of Living Children AB spontaneous Exam Const General: cooperative, healthy appearing and no acute distress HENMT Head: normal to inspection Face and sinus: normal facial exam Eyes General: appearance normal, both eyes and all related structures Pupils: PERRL EOM: EOM intact bilaterally Neck Neck: normal visual inspection and No submandibular swelling Lymphatic: no lymphadenopathy noted Chest Chest: normal inspection of the chest and no tenderness Resp Effort & Inspection: normal respiratory effort and able to speak in complete sentences Auscultation: clear to auscultation bilaterally Cardio Rate: regular rate Rhythm: regular rhythm GI Inspection: normal to inspection Palpation: soft, not firm, not rigid and nontender Auscultation: normal bowel sounds Skin General skin exam: no rashes or lesions noted Neuro General: patient alert, patient awake, patient oriented x3, gait normal and moves all extremities Cranial Nerves: CN's II-XI intact bilaterally Cognition: normal cognition Speech: speech normal Motor: muscle tone normal throughout and strength 5/5 throughout Sensory Exam: no sensory deficits noted Extrem General: normal to inspection, full ROM, capillary refill normal, no calf tenderness bilaterally and no edema Psych Appearance: grossly normal Mental Status: mental status grossly normal Speech and Movement: speech and movement normal Affect: normal affect Course Vital Signs Vital signs: Vital Signs Temperature 97.7 F 03/14/21 13:37 Pulse 79 03/14/21 13:37 Respiratory Rate 16 03/14/21 13:37 Blood Pressure 136/84 03/14/21 13:37 Pulse Oximetry 99 03/14/21 13:37 Temperature 97.7 F 03/14/21 13:37 Temperature Source Temporal Artery Scan 03/14/21 13:37 Pulse 79 03/14/21 13:37 Respiratory Rate 16 03/14/21 13:37 Respiratory Effort Non-Labored 03/14/21 13:37 Blood Pressure 136/84 03/14/21 13:37 Blood Pressure Position Sitting 03/14/21 13:37 Pulse Oximetry 99 03/14/21 13:37 Pain Level 5 03/14/21 13:37
[2021-03-14 14:05] VITALS: RESP 16
[2021-03-14 14:08] LABS: Abs Immature Grans 0.02 10^3/uL (0.0-0.06); Absolute Basophil Count 0.05 10^3/uL (0.0-0.2); Absolute Eosinophil Count 0.08 10^3/uL (0.0-0.7); Absolute Lymphocyte Count 1.36 10^3/uL (1.2-3.4); Basophils % 0.7; Eosinophils % 1.2; HCT 43.1 % (36.0-46.0); HGB 14.3 g/dL (11.2-15.7); Immature Grans % 0.3; MCH 29.5 pg (27.0-33.0); MCHC 33.2 % (32.0-36.0); MPV 10.7 fL (8.0-11.0); Monocytes % 4.4; Neutrophils % 73.4; Nucleated RBC 0 %; Platelet Count 283 10^3/uL (130-400); RBC 4.84 10^6/uL (3.93-5.22); RDW 12.4 % (11.7-14.6); RDW-SD 40.7 fL; WBC 6.81 10^3/uL (4.4-10.8)
[2021-03-14 14:22] LABS: ALT 30 U/L (14-59); AST 20 U/L (15-37); Albumin 4.1 g/dL (3.4-5.0); Alkaline Phosphatase 57 U/L (46-116); Anion Gap 7.8 mmol/L (3-11); BUN 17 mg/dL (7-18); Bilirubin, Total 0.2 mg/dL (0.2-1.0); CO2 29.2 mmol/L (21.0-32.0); CREATININE 0.8 mg/dL (0.55-1.02); Chloride 105 mmol/L (98-107); Glucose 111 mg/dL (74-106); Magnesium 1.9 mg/dL (1.8-2.4); PTT Activated 24.6 sec (21.0-27.5); Potassium 3.8 mmol/L (3.5-5.1); Prothrombin Time 9.9 sec (9.3-11.0); Sodium 142 mmol/L (136-145); Total Protein 7.8 g/dL (6.4-8.2); Troponin I < 0.05 ng/mL (<0.06)
[2021-03-14] MEDS: Normal Saline Flush 10 ML SYR IVP (14:30)
[2021-03-14] MEDS: Normal Saline 1,000 ML 1000 ML IV (14:30)
--- NOTE | 2021-03-14 14:30 | DI.CT_ITS ---
EXAM: CT HEAD WO CLINICAL HISTORY: headache, dizziness, L hand tingling, r/o cva. TECHNIQUE: Imaging Protocol: Axial computed tomography images with coronal and sagittal reformatted images were created and reviewed COMPARISON: CT HEAD WITHOUT CONTRAST from 06/30/2018 FINDINGS: There are no skull fractures nor fluid in the visualized paranasal sinuses. There is no evidence of intracranial hemorrhage, mass effect, or shift of midline structures. There are no extra-axial fluid collections. The ventricles are not enlarged or shifted and there is no blo od within the ventricular system nor within the basal cisterns. There is a small area of hypodensity on the left side which is unchanged from the 2018 study and is p ossibly a small sub lenticular cyst. IMPRESSION: No acute intracranial findings on this noninfused CT scan of the brain. No significant change compared to the prior CT scan performed June 2018. RADIATION DOSE DELIVERED: 671.49mGy.cm Total DLP DATA REPOSITORY: All CT scans at this facility are submitted to the National Radiology Data Registry (NRDR) Dose Index Registry (DIR) with the [employer] (A[employer]). RADIATION OPTIMIZATION: All CT scans at this facility use at least one of these dose optimization te chniques: automated exposure control; mA and/or kV adjustment per patient size (includes targeted exa ms where dose is matched to clinical indication); or iterative reconstruction.
[2021-03-14] MEDS: Ketorolac 30 MG/ML VIAL IVP (14:35)
--- NOTE | 2021-03-14 14:51 | DI.RAD_ITS ---
EXAM: XR CHEST 2V PA LATERAL CLINICAL HISTORY: L chest pain, r/o acute disease. TECHNIQUE: 2D digital imaging was performed. COMPARISON: CR,XR XR CHEST 2V PA LATERAL from 07/26/2020 FINDINGS: Heart size is normal. The mediastinum is not widened. Lungs are clear. No infiltrates nor pleural effusions. IMPRESSION: No acute pulmonary findings. No significant change compared to 07/26/2020 DATA REPOSITORY: RADIATION DOSE DELIVERED:
[2021-03-14 15:00] LABS: D-Dimer 470 ng/mlFEU (<500)
[2021-03-14] MEDS: LORazepam 0.5 MG TAB 1 MG PO (15:57)
== END 2021-03-14 15:50 | disposition home or self-care (01) ==
PROVIDERS: Emergency Provider Physician Assistant; PCP Nurse Practitioner
DX: R00.2 Palpitations (principal); R09.81 Nasal congestion; R20.2 Paresthesia of skin; R51.9 Headache, unspecified; R07.9 Chest pain, unspecified; G89.29 Other chronic pain
CPT/HCPCS: 36415; 80053; 81025; 93005; 96361; 96374; 99285; 70450; 71046; 83735; 84484; 85025; 85379; 85610; 85730; 93010; 93225; J1885

== ENCOUNTER 2021-03-14 15:47 | Outpatient (RCR) | payer OTHER, SELFPAY ==
--- NOTE | 2021-03-14 15:45 | HOLTER_ITS ---
APPROVED REPORT Exam Type: HOLTER MONITOR APPLICATION Patient Location: O Conclusion This was a 24-hour Holter monitor ordered for palpitations and chronic chest pain Rhythm throughout was sinus. Average heart rate was 78, minimum 56, maximum 137 2 isolated PVCs were seen There were no supraventricular dysrhythmias. There was no atrial fibrillation. There was no high-gr yoli AV block. There were no pauses greater than 3 seconds There were no patient symptoms were reported
== END 2021-03-23 23:59 | disposition home or self-care (01) ==
LOC: RT 15:47
PROVIDERS: PCP Nurse Practitioner; Visit Provider Physician Assistant
DX: R00.2 Palpitations (principal); R07.9 Chest pain, unspecified
CPT/HCPCS: 93225; 93226

== ENCOUNTER 2022-05-15 02:12 | Outpatient (CLI) | payer MEDICAID, SELFPAY | END 2022-05-15 02:13 | disposition home or self-care (01) | LOC: LBO 02:12 | PROVIDERS: PCP Nurse Practitioner; Visit Provider Advanced Practice Midwife ==

== ENCOUNTER 2023-03-11 14:35 | Outpatient (REF) | payer MEDICAID, SELFPAY | END 2023-03-11 14:36 | disposition home or self-care (01) | LOC: LBN 14:35 | PROVIDERS: PCP Nurse Practitioner; Visit Provider Nurse Practitioner Women's Health | DX: R30.0 Dysuria (principal) | CPT/HCPCS: 87086 ==

== ENCOUNTER 2023-03-13 02:34 | Outpatient (CLI) | payer MEDICAID, SELFPAY ==
--- NOTE | 2023-03-13 08:00 | DI.US_ITS ---
Exam(s) US PELVIS TRANSVAGINAL EXAM: US PELVIS TRANSVAGINAL CLINICAL HISTORY: pelvic pain,R10.2 TECHNIQUE: Transabdominal and transvaginal imaging was performed using standard protocol. COMPARISON: No exams were available for comparison FINDINGS: UTERUS: Anteverted. 8.6 x 3.8 x 4.7 cm Endometrium: 5 mm Myometrium: Unremarkable. Cervix: Unremarkable. OVARIES: Right: Cyst or mass: 2 centimeter dominant follicle. Left: Cyst or mass: None. DOPPLER: Color: Symmetric and uniform flow to both ovaries. No hyperemia. CUL-DE-SAC: Free fluid: None. IMPRESSION: 1. Normal-appearing uterus with endometrial stripe within normal limits. 2. Unremarkable bilateral ovaries. DATA REPOSITORY:
== END 2023-03-13 02:54 ==
LOC: DI 02:34
PROVIDERS: PCP Nurse Practitioner; Visit Provider Nurse Practitioner Women's Health
DX: R10.2 Pelvic and perineal pain (principal)
CPT/HCPCS: 76830; 76856

== ENCOUNTER 2023-12-01 04:16 | Outpatient (CLI) | payer MEDICAID, SELFPAY ==
[2023-12-01 14:35] LABS: Panorama Kit Sent via Fed Ex
[2023-12-01 14:51] LABS: Abs Immature Grans 0.01 10^3/uL (0.0-0.06); Absolute Basophil Count 0.04 10^3/uL (0.0-0.2); Absolute Eosinophil Count 0.11 10^3/uL (0.0-0.7); Absolute Lymphocyte Count 1.58 10^3/uL (1.2-3.4); Absolute Monocyte Count 0.29 10^3/uL (0.1-0.8); Absolute Neutrophil Count 3.29 10^3/uL (1.2-6.7); Basophils % 0.8; Eosinophils % 2.1; HCT 36.8 % (36.0-46.0); HGB 12.6 g/dL (11.2-15.7); Immature Grans % 0.2; Lymphocytes % 29.7; MCH 27.9 pg (27.0-33.0); MCHC 34.2 % (32.0-36.0); MCV 82 fL (80-95); MPV 10.3 fL (8.0-11.0); Monocytes % 5.5; Neutrophils % 61.7; Platelet Count 209 10^3/uL (130-400); RBC 4.51 10^6/uL (3.93-5.22); RDW 14.6 % (11.7-14.6); RDW-SD 42.5 fL; WBC 5.32 10^3/uL (4.4-10.8)
[2023-12-01 15:15] LABS: ALT 44 U/L (14-59); AST 29 U/L (15-37); Albumin 3.5 g/dL (3.4-5.0); Alkaline Phosphatase 42 U/L (46-116); Anion Gap 8.9 mmol/L (3-11); BUN 10 mg/dL (7-18); Bilirubin, Total 0.3 mg/dL (0.2-1.0); CO2 27.1 mmol/L (21.0-32.0); CREATININE 0.6 mg/dL (0.55-1.02); Calcium 9.3 mg/dL (8.5-10.1); Chloride 101 mmol/L (98-107); Estimated GFR 121.47 (mL/min/1.73m2); Glucose 91 mg/dL (74-106); LDH 268 U/L (81-234); Potassium 3.7 mmol/L (3.5-5.1); Sodium 137 mmol/L (136-145); TSH (W/Ref FT4) 1.43 uIU/mL (0.36-3.74); Total Protein 7.4 g/dL (6.4-8.2); Uric Acid 3.1 mg/dL (2.6-6.0)
[2023-12-02 10:42] LABS: Hepatitis B Surface Ag Negative (Negative)
[2023-12-02 11:11] LABS: Varicella IgG Antibody Positive (See Note)
[2023-12-02 11:17] LABS: Rubella IgG Ab (UVM) Positive (See Note)
[2023-12-02 11:18] LABS: Hepatitis C Ab w Rflx HCV PCR Negative (Negative)
[2023-12-02 11:25] LABS: HIV-1/2 Ag & Ab Screen Negative (Negative)
[2023-12-04 20:48] LABS: Syphilis IgG w/Reflex Nonreactive (Nonreactive)
[2023-12-20 00:59] LABS: Result Summary NEGATIVE; Specimen WB Whole Blood
== END 2023-12-01 04:17 | disposition home or self-care (01) ==
LOC: LBO 04:16
PROVIDERS: PCP Nurse Practitioner; Visit Provider Advanced Practice Midwife
DX: O09.291 Supervision of pregnancy with other poor reproductive or obstetric history, first trimester (principal); Z36.89 Encounter for other specified antenatal screening; Z3A.11 11 weeks gestation of pregnancy
CPT/HCPCS: 36415; 80053; 81220; 81222; 86787; 86803; 86850; 86900; 86901; 87340; 87389; 83615; 84443; 84550; 85025; 86762; 86780

== ENCOUNTER 2023-12-01 14:11 | Outpatient (REF) | payer MEDICAID, SELFPAY ==
[2023-12-01 17:03] LABS: *AMPHETAMINES SCREEN URINE Negative (Negative); *BARBITURATES SCREEN URINE Negative (Negative); *BENZODIAZEPINES SCREEN URINE Negative (Negative); Cannabinoids THC Negative (Negative); Cocaine Screen,Urine Negative (Negative); METHADONE URINE SCREEN Negative (Negative); OPIATES URINE SCREEN Negative (Negative)
[2023-12-01 17:04] LABS: Tricyclic Antidepressants Negative (Negative)
[2023-12-02 13:13] LABS: Chlamydia Result Negative (Negative); GC Result Negative (Negative)
[2023-12-06 14:16] LABS: Buprenorphine Negative ng/mL (Cutoff: 5.0); Norbuprenorphine Negative ng/mL (Cutoff: 2.5)
== END 2023-12-01 14:12 | disposition home or self-care (01) ==
LOC: LBN 14:11
PROVIDERS: PCP Nurse Practitioner; Visit Provider Advanced Practice Midwife
DX: O09.291 Supervision of pregnancy with other poor reproductive or obstetric history, first trimester (principal); Z3A.11 11 weeks gestation of pregnancy; Z11.3 Encounter for screening for infections with a predominantly sexual mode of transmission
CPT/HCPCS: 80307; 80348; 87491; 87591; 87086

== ENCOUNTER 2023-12-10 18:56 | Outpatient (REF) | payer MEDICAID, SELFPAY ==
[2023-12-10 13:25] LABS: Creatinine,24hr Ur 0.82 g/24hr (0.60-1.80); Creatinine,Urine 116.97 mg/dL; PROTEIN 18.7 mg/dL (0.0-11.9); TOTAL PROTEIN,URINE TIMED 130.9 mg/24hr (0.0-149.1); Total Volume 700 ml
== END 2023-12-10 18:57 | disposition home or self-care (01) ==
LOC: LBN 18:56
PROVIDERS: PCP Nurse Practitioner; Visit Provider Advanced Practice Midwife
DX: O09.291 Supervision of pregnancy with other poor reproductive or obstetric history, first trimester (principal); Z3A.12 12 weeks gestation of pregnancy
CPT/HCPCS: 81050; 82570; 84155

== ENCOUNTER 2023-12-17 10:34 | Outpatient (REF) | payer MEDICAID, SELFPAY ==
[2023-12-17 11:05] LABS: Source Nasal/Nares
[2023-12-17 11:38] LABS: COVID-19 PCR Negative (Negative)
== END 2023-12-17 10:35 | disposition home or self-care (01) ==
LOC: LBN 10:34
PROVIDERS: PCP Nurse Practitioner; Visit Provider Obstetrics & Gynecology
DX: O09.292 Supervision of pregnancy with other poor reproductive or obstetric history, second trimester (principal); Z3A.14 14 weeks gestation of pregnancy; Z11.52 Encounter for screening for COVID-19; J02.9 Acute pharyngitis, unspecified; R09.81 Nasal congestion; R51.9 Headache, unspecified
CPT/HCPCS: 87635

== ENCOUNTER 2023-12-24 04:46 | Outpatient (CLI) | payer MEDICAID, SELFPAY ==
--- NOTE | 2023-12-24 13:45 | TELEFU_ITS ---
Date of service: 12/24/23 Time of Service: 13:00 Nutrition Note NOTE: Lb had requested nutrition referral from her provider. 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 Hx of pre-eclampsia frightens her and she relates this is 90% of why she wanted the nutrition referral - she also just wants to eat healthier. She only had 30 min to talk today as she took time off during work. We discussed some changes that would be great to see. for instance she frequently just has a bagel with cream cheese in the morning out of ease/convenience. We reviewed how this can be compromised and she she can still have some bagel but should not make the bagel her entire meal, it should be PART of her meal with other items containing fiber and protein and are minimally processed . suggested half the bagel with HC egg, handful of nuts and some baby carrots as this would result in less refined carb, more protein, more fiber, and....MORE NUTRITION! We reviewed choosing items with short ingredient list, low or no added sugar (suggested under 40grams of added sugar) and also avoiding food products that are 300mg or more in sodium. pointed her to DASH diet for help in food choices and gave her my card with contact info should she want to follow up in any way. Time Spent in Nutritional Counseling and Treatment: 30 minutes
== END 2023-12-24 04:47 | disposition home or self-care (01) ==
PROVIDERS: PCP Nurse Practitioner; Visit Provider Dietitian, Registered
DX: O09.292 Supervision of pregnancy with other poor reproductive or obstetric history, second trimester (principal); Z3A.15 15 weeks gestation of pregnancy; Z71.3 Dietary counseling and surveillance
CPT/HCPCS: 00123; 97802

== ENCOUNTER 2024-01-23 13:28 | Outpatient (REF) | payer MEDICAID, SELFPAY | END 2024-01-23 13:29 | disposition home or self-care (01) | LOC: LBN 13:28 | PROVIDERS: PCP Nurse Practitioner; Visit Provider Advanced Practice Midwife | DX: O26.892 Other specified pregnancy related conditions, second trimester (principal); R10.9 Unspecified abdominal pain; N89.8 Other specified noninflammatory disorders of vagina; Z3A.19 19 weeks gestation of pregnancy | CPT/HCPCS: 87480; 87510; 87660 ==

== ENCOUNTER → 2024-01-26 02:32 | Outpatient (CLI) | payer MEDICAID, SELFPAY ==
--- NOTE | 2024-01-26 09:06 | DI.US_ITS ---
Exam(s) US OB 2-3 TRIMESTER W MOD EXAM: US OB 2-3 TRIMESTER W MOD CLINICAL HISTORY: anatomy US, survey, Z34.91. TECHNIQUE: Transabdominal obstetrical ultrasound performed. COMPARISON: US POCUS EXAM from 11/20/2023 FINDINGS: Number of fetuses: 1 position: VARIED heart rate: 142bpm Placental location: There is a grade 1 placenta on the right which extends anteriorly and posteriorly . The posterior component is less than 2 cm from the internal os. No previa is seen. No evidence o f previa. Amniotic fluid index: Amount of fluid is within normal limits. ANATOMICAL SURVEY: See below. BIOMETRIC DATA: BPD: 4.8cm, 20weeks 4days HC: 18.02cm, 20weeks 3days AC: 15.39cm, 20weeks 4days FL: 3.14cm, 19weeks 5days Cisterna magna: 2.7mm Cerebellum: 1.82cm Lateral ventricle: 5 mm EFW: 340.68g, 0.77lb, 75.4% Composite Age: 20weeks 2days CROW: 06/12/2024 Heart Rate: 142bpm ANATOMICAL SURVEY: Four-chambered heart: Unremarkable. RVOT: Unremarkable. LVOT: Unremarkable. Left-sided stomach: Unremarkable. urinary bladder: Not visualized on the current examination. The umbilical arteries were not se en on the current examination. Bilateral kidneys: Unremarkable. Three-vessel cord: Unremarkable. Cord insertion: Unremarkable. Posterior fossa: Unremarkable. ventricles: Unremarkable. nose/lips: Not well seen on the current examination. Palate: Unremarkable. spine: Unremarkable. Two arms and two legs: Unremarkable. IMPRESSION: 1. Single live intrauterine gestation as above. 2. The nose and lips, urinary bladder and bladder arteries were not seen. The patient is sched uled to return on 02/02/2024 for completion of the anatomic evaluation. At that time, re-evalua tion of the placental location will be obtained. DATA REPOSITORY:
== END ==
PROVIDERS: PCP Nurse Practitioner; Visit Provider Advanced Practice Midwife
DX: Z34.92 Encounter for supervision of normal pregnancy, unspecified, second trimester (principal); Z3A.20 20 weeks gestation of pregnancy
CPT/HCPCS: 76805

== ENCOUNTER → 2024-02-05 01:47 | Outpatient (CLI) | payer MEDICAID, SELFPAY ==
--- NOTE | 2024-02-05 | DI.US_ITS ---
Exam(s) US OB F/U FACIAL/LVOT/RVOT EXAM: US OB F/U FACIAL/LVOT/RVOT CLINICAL HISTORY: FU BLADDER NOSE LIPS FROM US ON 01/26/24 TO COMPLETE SURVEY. TECHNIQUE: Transabdominal obstetrical ultrasound was performed. COMPARISON: US US OB 2-3 TRIMESTER W MOD from 01/26/2024 FINDINGS: There is a single viable intrauterine gestation with cardiac activity identified-159 bpm The fetus is presently in cephalic position . Amniotic fluid: There is a normal amount of amniotic fluid. Placental location: The placenta is again noted to exhibit both anterior and posterior components and predominately right-sided.,the location of the tip of the placenta relative to the internal cervical os does not appear to have been restudied today. anatomy: Follow-up for images of the nose/lips region: Appears unremarkable on the present study Follow-up images of the bladder: Bladder is mostly empty but is visualized. IMPRESSION:: Congenital anomaly survey images obtained of the previously requested areas. No obviou s abnormalities. DATA REPOSITORY:
== END ==
PROVIDERS: PCP Nurse Practitioner; Visit Provider Advanced Practice Midwife
DX: Z34.92 Encounter for supervision of normal pregnancy, unspecified, second trimester (principal); Z3A.21 21 weeks gestation of pregnancy
CPT/HCPCS: 76815

== ENCOUNTER → 2024-03-26 02:30 | Outpatient (CLI) | payer MEDICAID, SELFPAY ==
--- NOTE | 2024-03-26 07:30 | DI.US_ITS ---
Exam(s) US OB F/U FACIAL/LVOT/RVOT EXAM: US OB F/U FACIAL/LVOT/RVOT CLINICAL HISTORY: f/u placenta location,o44.42. TECHNIQUE: Transabdominal obstetrical ultrasound was performed. COMPARISON: US US OB F/U FACIAL/LVOT/RVOT from 02/05/2024 FINDINGS: There is a single viable intrauterine gestation with cardiac activity identified-144 bpm The fetus is presently in breech position . Amniotic fluid: There is a normal amount of amniotic fluid with an CINDI of cm. Placental location: The placenta is predominantly anterior, grade 1, but exhibits an accessory lobe p osteriorly near the fundus.,. There is no evidence of placenta previa. IMPRESSION:: Viable intrauterine gestation. FHR = 144 BPM Predominately anterior placenta (grade 1). Also posterior fundal component which appears to be in co ntinuity by thin strip with the larger anterior component. Such as seen with succenturiate placenta. DATA REPOSITORY:
== END ==
PROVIDERS: PCP Nurse Practitioner; Visit Provider Advanced Practice Midwife
DX: O44.43 Low lying placenta NOS or without hemorrhage, third trimester (principal); O43.893 Other placental disorders, third trimester; Z3A.28 28 weeks gestation of pregnancy
CPT/HCPCS: 76815

== ENCOUNTER 2024-04-06 05:16 | Outpatient (CLI) | payer MEDICAID, SELFPAY ==
[2024-04-06 09:13] LABS: HGB 11.2 g/dL (11.2-15.7); MCH 27.9 pg (27.0-33.0); MCV 87 fL (80-95); MPV 9.9 fL (8.0-11.0); Platelet Count 257 10^3/uL (130-400); RBC 4.02 10^6/uL (3.93-5.22); RDW 13.1 % (11.7-14.6); RDW-SD 41.1 fL; WBC 8.24 10^3/uL (4.4-10.8)
[2024-04-06 09:33] LABS: Glucose,1 Hr (Glucola) 125 mg/dL (80-140)
[2024-04-06 09:43] LABS: ALT 55 U/L (14-59); AST 32 U/L (15-37); Albumin 2.8 g/dL (3.4-5.0); Alkaline Phosphatase 63 U/L (46-116); Anion Gap 11.1 mmol/L (3-11); BUN 7 mg/dL (7-18); Bilirubin, Total 0.3 mg/dL (0.2-1.0); CO2 24.9 mmol/L (21.0-32.0); CREATININE 0.5 mg/dL (0.55-1.02); Calcium 8.4 mg/dL (8.5-10.1); Chloride 101 mmol/L (98-107); Estimated GFR 126.93 (mL/min/1.73m2); Glucose 122 mg/dL (74-106); LDH 165 U/L (81-234); Potassium 3.6 mmol/L (3.5-5.1); Sodium 137 mmol/L (136-145); Total Protein 7.2 g/dL (6.4-8.2)
== END 2024-04-06 05:17 | disposition home or self-care (01) ==
LOC: LBO 05:16
PROVIDERS: PCP Nurse Practitioner; Visit Provider Advanced Practice Midwife
DX: Z34.80 Encounter for supervision of other normal pregnancy, unspecified trimester (principal); O09.299 Supervision of pregnancy with other poor reproductive or obstetric history, unspecified trimester; O26.899 Other specified pregnancy related conditions, unspecified trimester; Z67.91 Unspecified blood type, Rh negative
CPT/HCPCS: 36415; 80053; 82950; 85027; 86850; 90384; 83615

== ENCOUNTER 2024-04-06 14:59 | Outpatient (REF) | payer MEDICAID, SELFPAY ==
[2024-04-06 12:22] LABS: PROTEIN 10.8 mg/dL (0.0-11.9)
[2024-04-06 12:30] LABS: TOTAL PROTEIN,URINE TIMED 183.6 mg/24hr (0.0-149.1); Total Volume 1700 ml
== END 2024-04-06 15:00 | disposition home or self-care (01) ==
LOC: LBN 14:59
PROVIDERS: PCP Nurse Practitioner; Visit Provider Advanced Practice Midwife
DX: O09.299 Supervision of pregnancy with other poor reproductive or obstetric history, unspecified trimester (principal)
CPT/HCPCS: 81050; 84155

== ENCOUNTER 2024-05-18 12:36 | Outpatient (CLI) | payer MEDICAID, SELFPAY ==
[2024-05-18 12:48] VITALS: BP 121/78; PULSE 96; TEMP 36.4
[2024-05-18 12:56] VITALS: BP 121/78; PULSE 96; RESP 16; TEMP 36.4; O2SAT 99
[2024-05-18 13:16] LABS: Abs Immature Grans 0.03 10^3/uL (0.0-0.06); Absolute Basophil Count 0.02 10^3/uL (0.0-0.2); Absolute Eosinophil Count 0.04 10^3/uL (0.0-0.7); Absolute Lymphocyte Count 1.97 10^3/uL (1.2-3.4); Absolute Monocyte Count 0.34 10^3/uL (0.1-0.8); Absolute Neutrophil Count 4.45 10^3/uL (1.2-6.7); Basophils % 0.3 %; Eosinophils % 0.6 %; HCT 33.2 % (36.0-46.0); HGB 10.6 g/dL (11.2-15.7); Immature Grans % 0.4 %; Lymphocytes % 28.8 %; MCH 26.4 pg (27.0-33.0); MCHC 31.9 % (32.0-36.0); MCV 83 fL (80-95); MPV 11.1 fL (8.0-11.0); Neutrophils % 64.9 %; Platelet Count 241 10^3/uL (130-400); RBC 4.02 10^6/uL (3.93-5.22); RDW 13.4 % (11.7-14.6); RDW-SD 39.9 fL; WBC 6.85 10^3/uL (4.4-10.8)
[2024-05-18 13:29] LABS: ALT 78 U/L (14-59); AST 61 U/L (15-37); Albumin 2.3 g/dL (3.4-5.0); Alkaline Phosphatase 118 U/L (46-116); Anion Gap 12.1 mmol/L (3-11); BUN 12 mg/dL (7-18); Bilirubin, Total 0.25 mg/dL (0.2-1.0); CO2 20.9 mmol/L (21.0-32.0); CREATININE 0.5 mg/dL (0.55-1.02); Calcium 8.5 mg/dL (8.5-10.1); Chloride 104 mmol/L (98-107); Estimated GFR 126.93 (mL/min/1.73m2); Glucose 111 mg/dL (74-106); Potassium 4.1 mmol/L (3.5-5.1); Sodium 137 mmol/L (136-145); Total Protein 6.5 g/dL (6.4-8.2)
--- NOTE | 2024-05-18 13:46 | W.OBNST ---
Date of service: 05/18/24 Time of Service: 13:46 NST Evaluation Reason for NST Reasons for Nonstress Test: OTHER, SEE COMMENT Reason for NST Other: itching Gestational Age Gestational Age in Weeks and Days: 35 Weeks and 6Days Test and Monitor Explained Test/Monitor Explained: Test Explained, Monitor Explained and Patient Verbalized Understanding Vital Signs Blood Pressure: 121/78 Pulse: 96 Temperature: 97.5 F Urine Results Urine Protein: Negative Urine Ketones: Negative Urine Glucose: Negative Urine Blood: Negative NST Information Time on Monitor: 12:48 Date off Monitor: 05/18/24 Time off Monitor: 13:23 NST Interventions: PO Hydration Contraction Frequency: 0 NST Evaluation Patient States Movement: Present FHR Baseline: 150 Variability: Moderate 6-25 bpm Accelerations: 15x15 Decelerations: None NST Results: Reactive Note Ultrasound Done: N/A. NST Note Note: NST is reactive and reassuring. Labs for potential cholestasis of ordered. CMP slightly elevated liver enzymes, urine dip negative for protein. CBC mild anemia. Will treat with ursodiol 300 mg twice daily and have patient return on Friday for NST and possible repeat labs. Bile acids drawn and sent out today. Plan of care reviewed with Dr. Lyons who agrees to plan. NST Reviewed and Verified by: Valeria Ibrahim
[2024-05-18 13:48] VITALS: BP 121/78; PULSE 96; TEMP 36.4
[2024-05-18] MEDS: Ursodiol 300 MG CAP PO (13:52)
[2024-05-20 15:30] LABS: Total Bile Acids 16.43 nmol/mL (<=19.00); Total Chenodeoxycholic acid 3.13 nmol/mL (<=6.00); Total Cholic acid 10.71 nmol/mL (<=5.00); Total Deoxycholic acid 1.65 nmol/mL (<=6.00); Total Ursodeoxycholic acid 0.94 nmol/mL (<=2.00)
== END 2024-05-18 14:19 ==
LOC: BCD 12:38 → OBS 12:45
PROVIDERS: PCP Nurse Practitioner; Visit Provider Advanced Practice Midwife
DX: O26.893 Other specified pregnancy related conditions, third trimester (principal); L29.9 Pruritus, unspecified; Z3A.35 35 weeks gestation of pregnancy; O09.293 Supervision of pregnancy with other poor reproductive or obstetric history, third trimester
CPT/HCPCS: 59025; 36415; 80053; 83789; 85025; 87086

== ENCOUNTER 2024-05-20 16:23 | Outpatient (REF) | payer MEDICAID, SELFPAY | END 2024-05-20 16:24 | disposition home or self-care (01) | LOC: LBN 16:23 | PROVIDERS: PCP Nurse Practitioner; Visit Provider Obstetrics & Gynecology | DX: Z34.83 Encounter for supervision of other normal pregnancy, third trimester (principal); Z3A.36 36 weeks gestation of pregnancy; Z36.85 Encounter for antenatal screening for Streptococcus B | CPT/HCPCS: 87081 ==

== ENCOUNTER 2024-05-22 06:41 | Outpatient (CLI) | payer MEDICAID, SELFPAY ==
[2024-05-22 06:53] VITALS: BP 128/76; PULSE 78; TEMP 36.8
[2024-05-22 07:12] VITALS: BP 128/76; PULSE 78
[2024-05-22 07:33] LABS: ALT 108 U/L (14-59); AST 66 U/L (15-37); Albumin 2.2 g/dL (3.4-5.0); Alkaline Phosphatase 124 U/L (46-116); Anion Gap 11.1 mmol/L (3-11); BUN 10 mg/dL (7-18); Bilirubin, Total 0.23 mg/dL (0.2-1.0); CO2 21.9 mmol/L (21.0-32.0); CREATININE 0.6 mg/dL (0.55-1.02); Calcium 8.8 mg/dL (8.5-10.1); Chloride 104 mmol/L (98-107); Estimated GFR 121.47 (mL/min/1.73m2); Glucose 127 mg/dL (74-106); Sodium 137 mmol/L (136-145); Total Protein 6.4 g/dL (6.4-8.2)
--- NOTE | 2024-05-22 08:11 | W.OBNST ---
Date of service: 05/22/24 Time of Service: 08:11 NST Evaluation Reason for NST Reasons for Nonstress Test: OTHER, SEE COMMENT Reason for NST Other: Cholestasis Gestational Age Gestational Age in Weeks and Days: 36 Weeks and 3Days Test and Monitor Explained Test/Monitor Explained: Test Explained, Monitor Explained and Patient Verbalized Understanding Vital Signs Blood Pressure: 128/76 Pulse: 78 Temperature: 98.2 F NST Information Date on Monitor: 05/22/24 Time on Monitor: 06:45 Date off Monitor: 05/22/24 Time off Monitor: 07:40 Total Time on Monitor: 55 NST Interventions: PO Hydration NST Evaluation Patient States Movement: Present FHR Baseline: 130 Variability: Moderate 6-25 bpm Accelerations: 15x15 Decelerations: None NST Results: Reactive Note Ultrasound Done: N/A. NST Note Note: CMP and bile acids drawn today RTO in 2 days for repeat NST Is scheduled for IOL @ 37 wks vis cervical ripening 05/26/24 Reviewed with pt the agents and process for cervical ripening and IOL Pt consents to plan of care, questions addressed NST Reviewed and Verified by: Marcella Mendoza
[2024-05-22 08:14] VITALS: BP 128/76; PULSE 78; TEMP 36.8
[2024-05-24 16:47] LABS: Bile Acids, Total 19 mcmol/L (<=10)
== END 2024-05-22 07:54 | disposition home or self-care (01) ==
LOC: BCD 06:45 → OBS 06:50
PROVIDERS: PCP Nurse Practitioner; Visit Provider Advanced Practice Midwife
DX: O26.613 Liver and biliary tract disorders in pregnancy, third trimester (principal); Z3A.36 36 weeks gestation of pregnancy
CPT/HCPCS: 59025; 36415; 80053; 82239

== ENCOUNTER 2024-05-24 05:46 | Outpatient (CLI) | payer MEDICAID, SELFPAY ==
[2024-05-24 07:59] VITALS: BP 120/74; PULSE 97; TEMP 36.7
[2024-05-24 08:10] VITALS: BP 120/74; PULSE 97
[2024-05-24 08:57] VITALS: BP 120/74; PULSE 97; TEMP 36.7
--- NOTE | 2024-05-24 08:57 | W.OBNST ---
Date of service: 05/24/24 Time of Service: 08:57 NST Evaluation Reason for NST Reasons for Nonstress Test: OTHER, SEE COMMENT Reason for NST Other: cholestasis Gestational Age Gestational Age in Weeks and Days: 36 Weeks and 5Days Test and Monitor Explained Test/Monitor Explained: Test Explained and Monitor Explained Vital Signs Blood Pressure: 120/74 Pulse: 97 Temperature: 98.1 F Urine Results Urine Protein: Negative Urine Ketones: Negative Urine Glucose: Negative Urine Blood: Negative NST Information Date on Monitor: 05/24/24 Time on Monitor: 08:10 Date off Monitor: 05/24/24 Time off Monitor: 08:45 Total Time on Monitor: 35 NST Interventions: PO Hydration NST Evaluation Patient States Movement: Present FHR Baseline: 130 Variability: Moderate 6-25 bpm Accelerations: 15x15 Decelerations: None NST Results: Reactive Note Ultrasound Done: N/A. NST Note Note: IOL in 2 days (@ 37 wks) NST Reviewed and Verified by: Marcella Mendoza
== END 2024-05-24 08:53 ==
LOC: BCD 05:48 → OBS 07:57
PROVIDERS: PCP Nurse Practitioner; Visit Provider Advanced Practice Midwife
DX: O26.613 Liver and biliary tract disorders in pregnancy, third trimester (principal); Z3A.36 36 weeks gestation of pregnancy
CPT/HCPCS: 59025

== ENCOUNTER 2024-05-26 08:12 | Inpatient (IN) | payer MEDICAID, SELFPAY ==
[2024-05-26] VITALS (52 sets, daily range): BP systolic 113–145; BP diastolic 66–84; PULSE 0–118; RESP 16–17; TEMP 36.6–36.8; O2SAT 97–100
[2024-05-26] MEDS: Normal Saline 250 ML (08:43)
[2024-05-26] MEDS: Lactated Ringers 1,000 ML 125 ML IV ×2 (08:45→16:50)
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
[2024-05-26 09:19] LABS: HCT 34.3 % (36.0-46.0); HGB 10.9 g/dL (11.2-15.7); MCH 25.6 pg (27.0-33.0); MCHC 31.8 % (32.0-36.0); MCV 81 fL (80-95); MPV 11.6 fL (8.0-11.0); Platelet Count 242 10^3/uL (130-400); RBC 4.25 10^6/uL (3.93-5.22); RDW 13.6 % (11.7-14.6); RDW-SD 39.9 fL; WBC 7.04 10^3/uL (4.4-10.8)
[2024-05-26 09:36] LABS: ALT 125 U/L (14-59); AST 69 U/L (15-37); Albumin 2.5 g/dL (3.4-5.0); Alkaline Phosphatase 127 U/L (46-116); Anion Gap 11.1 mmol/L (3-11); BUN 12 mg/dL (7-18); Bilirubin, Total 0.29 mg/dL (0.2-1.0); CO2 20.9 mmol/L (21.0-32.0); CREATININE 0.5 mg/dL (0.55-1.02); Chloride 103 mmol/L (98-107); Estimated GFR 126.93 (mL/min/1.73m2); Glucose 86 mg/dL (74-106); Potassium 4.2 mmol/L (3.5-5.1); Sodium 135 mmol/L (136-145); Total Protein 6.8 g/dL (6.4-8.2)
[2024-05-26] MEDS: Calcium Carbonate *TUMS* 500 MG CHEW 1000 MG PO ×2 (09:49→16:50)
[2024-05-26] MEDS: Oxytocin/Normal Saline 30 UNIT/500 ML BAG 2 UNITS IV (09:50)
--- NOTE | 2024-05-26 14:48 | W.PM.OBNL1 ---
Date of service: 05/26/24 Time of Service: 14:49 Pelvic Exam Dilation: 4 Effacement (%): 80 station: -1 Cervix Position: mid Consistency: soft Vaginal Exam Presentation: Cephalic Comments: AROM performed for a large amount of clear fluid. Contractions Monitor Mode: External Contraction Frequency(min): every 3-5 Contraction Duration(sec): 60 Intensity: Mild Fetus A Monitor: External (US) Heart Rate Baseline: 130 Presentation: Cephalic Variability: Moderate (6-25 BPM) Categories: Category I FHR Rhythm: Regular Accelerations: 15 X 15 Decelerations: None Amniotic Membrane Status: Ruptured Rupture Method: Artifical Amniotic Fluid: Clear Amount: moderate Assessment and Plan Assessment and plan (1) Encounter for induction of labor: Status: Acute Assessment and plan: Will continue to assess labor pattern and increase pitocin rate when appropriate. (2) Intrahepatic cholestasis of in third trimester: Status: Acute Assessment and plan: Vital signs stable. Category 1 tracing. Objective Abnormal lab results 05/26/24 Range/Units 08:58 Hgb 10.9 L (11.2-15.7) g/dL Hct 34.3 L (36.0-46.0) % MCH 25.6 L (27.0-33.0) pg MCHC 31.8 L (32.0-36.0) % MPV 11.6 H (8.0-11.0) fL Sodium 135 L (136-145) mmol/L Carbon Dioxide 20.9 L (21.0-32.0) mmol/L Anion Gap 11.1 H (3-11) mmol/L Creatinine 0.5 L (0.55-1.02) mg/dL AST 69 H (15-37) U/L ALT 125 H (14-59) U/L Alkaline Phosphatase 127 H (46-116) U/L Albumin 2.5 L (3.4-5.0) g/dL Temp Pulse Resp BP Pulse Ox 98.2 F 111 H 16 131/81 98 05/26/24 12:45 05/26/24 14:45 05/26/24 12:45 05/26/24 14:45 05/26/24 14:45 Laboratory Results WBC 7.04 10^3/uL (4.4-10.8) 05/26/24 08:58 RBC 4.25 10^6/uL (3.93-5.22) 05/26/24 08:58 Hgb 10.9 g/dL (11.2-15.7) L 05/26/24 08:58 Hct 34.3 % (36.0-46.0) L 05/26/24 08:58 MCV 81 fL (80-95) 05/26/24 08:58 MCH 25.6 pg (27.0-33.0) L 05/26/24 08:58 MCHC 31.8 % (32.0-36.0) L 05/26/24 08:58 RDW 13.6 % (11.7-14.6) 05/26/24 08:58 Plt Count 242 10^3/uL (130-400) 05/26/24 08:58 MPV 11.6 fL (8.0-11.0) H 05/26/24 08:58 Sodium 135 mmol/L (136-145) L 05/26/24 08:58 Potassium 4.2 mmol/L (3.5-5.1) 05/26/24 08:58 Chloride 103 mmol/L (98-107) 05/26/24 08:58 Carbon Dioxide 20.9 mmol/L (21.0-32.0) L 05/26/24 08:58 Anion Gap 11.1 mmol/L (3-11) H 05/26/24 08:58 BUN 12 mg/dL (7-18) 05/26/24 08:58 Creatinine 0.5 mg/dL (0.55-1.02) L 05/26/24 08:58 Est GFR (CKD-EPI 2020) 126.93 (mL/min/1.73m2) 05/26/24 08:58 Glucose 86 mg/dL (74-106) 05/26/24 08:58 Calcium 9.0 mg/dL (8.5-10.1) 05/26/24 08:58 Total Bilirubin 0.29 mg/dL (0.2-1.0) 05/26/24 08:58 AST 69 U/L (15-37) H 05/26/24 08:58 ALT 125 U/L (14-59) H 05/26/24 08:58 Alkaline Phosphatase 127 U/L (46-116) H 05/26/24 08:58 Total Protein 6.8 g/dL (6.4-8.2) 05/26/24 08:58 Albumin 2.5 g/dL (3.4-5.0) L 05/26/24 08:58 ABO/Rh AB Negative 05/26/24 08:58 Antibody Screen POSITIVE 05/26/24 08:58 Antibody Identification Anti-D 05/26/24 08:58 Subjective Patient Reports: No new Complaints Interval history since last seen: The ripening balloon fell out spontaneously. Jenness is comfortable. Pitocinis at 6 mu/min. Results Hemoglobin/Hematocrit: Hgb 10.9 g/dL (11.2-15.7) L 05/26/24 08:58 Hct 34.3 % (36.0-46.0) L 05/26/24 08:58 Abnormal Lab Findings: Abnormal Labs 05/26/24 08:58 Hgb 10.9 L Hct 34.3 L MCH 25.6 L MCHC 31.8 L MPV 11.6 H Sodium 135 L Carbon Dioxide 20.9 L Anion Gap 11.1 H Creatinine 0.5 L AST 69 H ALT 125 H Alkaline Phosphatase 127 H Albumin 2.5 L
--- NOTE | 2024-05-26 18:00 | PLAC_PTH ---
PATIENT: Lb Robins LOC: OBS U#:[id number] AGE/SX: 33/F ROOM: OBS.301 RE05/26/[address]: Valeria Copeland : 1990 BED: A DIS: 05/27/2024 SPEC #: [id number] RECD: 05/31/24 13:08 STATUS: ROBERT REQ #: [id number] ELZA: 05/26/24 18:[address]: Valeria Copeland DEPT: Surgical Specimen RECD BY: Xena Cheung ENTERED: 05/31/24 13:09 SP TYPE: PLAC OTHR DR: Nicolasa Jackson APRN Tissues: 1 - PLACENTA (3RD TRIMESTER) Procedures: GROSS AND MICRO LEVEL 5 Comments: [id number]
--- NOTE | 2024-05-26 19:11 | W.OBDELIVERY ---
Date of service: 05/26/24 Time of Service: 19:11 OB Labor/ Delivery Information Baby A Delivery Delivery Method: Spontaneaous Presentation: Vertex Vertex Position: Left Occipital Anterior Cord Description-Baby A: 3 Vessels Cord Description Comment: succincuriate lobe Amniotic Fluid: Clear Estimated Blood Loss: 250 Delivery Outcome: Liveborn Infant Transferred: Remains with Mother Providers Nurse Animal Impersonator: Valeria Copeland Nurse: Lupe Dixon Nurse: Mayra Thomas Labor/Delivery Information Number of Babies in Womb: 1 Steroids Given: None Reason Steroids Not Administered: N/A Group Beta Strep: Negative Rubella Status: Immune Blood Type: AB- Varicella Immunity: Immune Born En Route: No Maternal Complications: None Shoulder Dystocia: No Note: Labor progressed quickly after AROM performed. Lb got up to the toilet and soon began to feel an urge to push and moved to squatting in the bathroom. The baby crowned and she was unable to deliver the shoulders in the squatting position. She was moved to lying down and suprapubic pressure was requested and performed and the shoulders delivered easily with the next push The baby girl was placed on mother's abdomen and she was dried and stimulated. She crying and vigorous after stimulation and a short cord was noted. I cut the cord and Lb was moved to her bed. Pitocin 30 units IV was administered before delivery of the placenta. The placenta delivered spontaneously with trailing membranes. The placenta quarter ramírez shaped with a small succincuriate lobe noted. It was sent to pathology for examination. FHTs 130s during first stage of labor. FHTs 130s in second stage. The perineum was inspected and was intact with small periurethral lacerations. The baby did breastfeed well after delivery. After delivery, Mother and baby and father of the baby were stable and bonding well in the delivery room and there were no complications. Stages of Labor Onset of Labor Date: 05/26/24 Onset of Labor Time: 16:00 Complete Dilatation Date: 05/26/24 Complete Dilatation Time: 17:50 Labor - Stage 1 Duration: 1 hours and 50 minutes ROM Baby A: 05/26/24 ROM Baby A: 14:40 ROM Total Time- Baby A: [id number] Infant Delivery Date-Baby A: 05/26/24 Delivery Time-Baby A: 17:57 Labor Stage 2 Duration: 7 minutes Placenta Delivery Date-Baby A: 05/26/24 Placenta Delivery Time-Baby A: 18:13 Labor-Stage 3 Duration: 16 minutes Total Length of Labor-Baby A: 1 hours and 57 minutes Placenta Status: Delivered Baby A Gender: Female Gestational Status: Early Term (37-38.6 wks) Gestational Age in Weeks/Days: 37 Weeks and 0 Days Score-1 Minute Interval(Baby A) Heart Rate-1 minute: 100 BPM or Greater Respiratory Effort- 1 minute: Slow Respiration/Weak Cry Muscle Tone-1 minute: Minimal Flexion/Extension Reflex Response-1 minute: Prompt Response Color-1 minute: Pallor or Cyanosis Total Score-1 minute: 6 Score-5 Minute Interval(Baby A) Heart Rate- 5 minute: 100 BPM or Greater Respiratory Effort-5 minute: Slow Respiration/Weak Cry Muscle Tone-5 minute: Active Movement Reflex Response-5 minute: Prompt Response Color-5 minute: Pallor or Cyanosis Total Score- 5 minute: 7 Shoulder Dystocia Delivery Times Date of Delivery of Head: 05/26/24 Time of Delivery of the Head: 17:56 Head to Body Delivery Interval(minutes): 1 Verify No Fundal Pressure Applied Fundal Pressure: No Pressure Applied Arm Under Sympisis Arm Under Symphisis: Right Note: Anterior shoulder delivered easily after the patient moved from squatting on the floor to lying down on the floor for better access
[2024-05-26] MEDS: Ibuprofen 600 MG TAB PO (19:46)
[2024-05-26] MEDS: Acetaminophen 325 MG TAB 650 MG PO (19:47)
[2024-05-27] MEDS: Ibuprofen 600 MG TAB PO (05:27)
[2024-05-27] MEDS: Docusate Sodium 100 MG CAP PO (05:27)
[2024-05-27] MEDS: Acetaminophen 325 MG TAB 650 MG PO (05:27)
[2024-05-27 07:45] VITALS: BP 125/81; PULSE 93; RESP 16; TEMP 36.8; O2SAT 98
--- NOTE | 2024-05-27 11:20 | W.PM.OBPNV1 ---
Date of service: 05/27/24 Time of Service: 11:20 Assessment and Plan Assessment and plan (1) Term delivered: Status: Acute Assessment and plan: A: PPD#1, nml recovery, well, pleased with experience Pt declines RhoGam after risks and benefits discussed, does not plan future P: Pt desires discharge at 24 hrs Tubal ligation at 8 wks is planned Miralax today and daily at home, Colace 100 mg PO BID Written instructions reviewed and given to pt F/up at 2 & 6 wks Subjective Subjective Patient comments: No complaints, Pain well controlled, Tolerating diet and Flatus present (reports feeling constipated) Patient's Mood: happy [place] baby status: Doing well, Nursing well, Rooming in and Strong Bonding Observed feeding status: Exclusively breast feeding Exam Physical Exam Vital signs: Temp Pulse Resp BP Pulse Ox 98.2 F 93 H 16 125/81 98 05/27/24 07:45 05/27/24 07:45 05/27/24 07:45 05/27/24 07:45 05/27/24 07:45 Vital Signs Reviewed: Yes Constitutional Constitutional: no acute distress and cooperative HEENT Exam HEENT Exam: Normal Neck Exam Neck Exam: Normal Breast Exam Bilateral: Breast Exam: Normal and Soft Nipple Exam: Normal and Uninjured Respiratory Exam Respiratory Exam: Normal Cardiovascular Exam Cardiovascular Exam: Normal Abdominal Exam Abdomen: Other (soft, nontender) Fundal Exam Fundus: Below Umbilicus and Firm Rectal Exam Rectal Exam: Normal Exam Perineum: Intact and Normal Extremities Exam Extremity Exam: Normal and Warm to Touch Back/Spine/Pelvis Exam Back Exam: Normal Skin Exam Skin Exam: Normal Neurological Exam Neurological Exam: Normal Psychiatric Exam Psychiatric Exam: Normal
[2024-05-27 13:00] VITALS: BP 127/90; PULSE 85; RESP 16; TEMP 36.4; O2SAT 98
--- NOTE | 2024-05-27 15:18 | NUR.NOTE ---
06/06/24 14:30 Explained to patient her blood type is AB- and Baby's blood type is B+, that she would need Rhogam for pretection for future pregnancies. Patient stated she did not plan on any future pregnancies. Spoke with defence force senior officer Lucila Mendoza, she stated she would still recommend Rhogam for the just in case . Explained to patient she indicates that she plans to be very careful and is planning on a tubal. Therefore she is declining Rhogam at this time.
[2024-05-27] MEDS: Polyethylene Glycol 3350 17 GM PACKET PO (16:06)
[2024-05-27 17:30] VITALS: BP 135/90; PULSE 85; RESP 16; TEMP 36.6; O2SAT 97
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
== END 2024-05-27 19:22 | disposition home or self-care (01) | DRG 806 ==
PROVIDERS: Admitting Provider Advanced Practice Midwife; PCP Nurse Practitioner; Visit Provider Advanced Practice Midwife
DX: O26.643 Intrahepatic cholestasis of pregnancy, third trimester (principal); O99.324 Drug use complicating childbirth; Z37.0 Single live birth; Z3A.37 37 weeks gestation of pregnancy; O69.3XX0 Labor and delivery complicated by short cord, not applicable or unspecified; O43.193 Other malformation of placenta, third trimester; O71.82 Other specified trauma to perineum and vulva; O99.344 Other mental disorders complicating childbirth; F12.90 Cannabis use, unspecified, uncomplicated; G47.00 Insomnia, unspecified; G89.29 Other chronic pain; R07.89 Other chest pain; M54.50 Low back pain, unspecified; R20.2 Paresthesia of skin; L85.8 Other specified epidermal thickening; F90.9 Attention-deficit hyperactivity disorder, unspecified type; F43.10 Post-traumatic stress disorder, unspecified; F31.9 Bipolar disorder, unspecified; O75.89 Other specified complications of labor and delivery; Z67.91 Unspecified blood type, Rh negative
CPT/HCPCS: 36415; 80053; 85027; 86850; 86900; 86901; 59200; 86870; 88307

== ENCOUNTER 2024-08-10 02:03 | Outpatient (CLI) | payer MEDICAID, SELFPAY ==
[2024-08-10 11:46] LABS: Abs Immature Grans 0.01 10^3/uL (0.0-0.06); Absolute Basophil Count 0.02 10^3/uL (0.0-0.2); Absolute Eosinophil Count 0.07 10^3/uL (0.0-0.7); Absolute Lymphocyte Count 1.66 10^3/uL (1.2-3.4); Absolute Monocyte Count 0.32 10^3/uL (0.1-0.8); Absolute Neutrophil Count 2.57 10^3/uL (1.2-6.7); Basophils % 0.4 %; Eosinophils % 1.5 %; HCT 39.2 % (36.0-46.0); HGB 12.6 g/dL (11.2-15.7); Immature Grans % 0.2 %; Lymphocytes % 35.7 %; MCH 25.6 pg (27.0-33.0); MCHC 32.1 % (32.0-36.0); MCV 80 fL (80-95); MPV 10.4 fL (8.0-11.0); Monocytes % 6.9 %; Neutrophils % 55.3 %; Platelet Count 222 10^3/uL (130-400); RBC 4.92 10^6/uL (3.93-5.22); RDW 14.9 % (11.7-14.6); RDW-SD 42.8 fL; WBC 4.65 10^3/uL (4.4-10.8)
== END 2024-08-10 02:04 | disposition home or self-care (01) ==
LOC: LBO 02:03
PROVIDERS: PCP Nurse Practitioner; Visit Provider Obstetrics & Gynecology
DX: Z01.818 Encounter for other preprocedural examination (principal)
CPT/HCPCS: 36415; 86850; 86900; 86901; 85025

== ENCOUNTER 2024-08-11 08:46 | Day surgery (SDC) | payer MEDICAID, SELFPAY ==
[2024-08-11] VITALS (37 sets, daily range): BP systolic 88–138; BP diastolic 48–90; PULSE 40–77; RESP 7–19; TEMP 36.2–36.5; O2SAT 91–100; BMI 28.9
[2024-08-11] MEDS: Normal Saline 1,000 ML 125 ML IV (09:40)
--- NOTE | 2024-08-11 10:18 | W.ANESPRE ---
General Info Date of Service Date Performed: 08/11/24 Height: 5 ft 7 in Weight: 83.733 kg Body Mass Index (BMI): 28.9 Surgical Procedure: Operation Date: 08/11/24 09:40 Proposed Procedure Side Surgeon p Salpingectomy Laparoscopic Bilateral Marlyn Lyons DO Meds Allergies and Home Medications Allergies Allergy/AdvReac Type Severity Reaction Status Date / Time Penicillins Allergy Unknown unknown, Verified 08/11/24 09:23 childhood reaction lisdexamfetamine dimesylate AdvReac Intermediate chest Verified 08/11/24 09:23 (From Vyvanse) discomfort, throbbing H/A, Tingling in Head Home Medication ?Medication ?Instructions ?Recorded salicylic acid 6 % topical gel 1 applic topical QAM #240 grams 07/08/23 vitamin#30 30 mg iron-10 1 cap PO DAILY 01/16/24 mg iron-folic acid 1 mg-omg3 capsule lamotrigine 100 mg tablet 100 mg PO DAILY #90 tabs 02/23/24 valacyclovir 1 gram tablet 1,000 mg PO DAILY 07/27/24 sertraline 100 mg tablet 100 mg PO DAILY #90 tabs 08/02/24 Current Visit Medications: Current Medications Generic Name Dose Route Start Last Admin Trade Name Freq PRN Reason Stop Dose Admin Sodium Chloride 1,000 mls @ 125 mls/hr 08/11/24 06:00 08/11/24 09:40 Saline 1000ml Bag IV 08/11/24 23:59 125 mls/hr INFUSION KAT Administration IV Miscellaneous Supplies 1 each 08/11/24 06:00 Iv Access IV 08/11/24 23:59 DIRECTED KAT Sodium Chloride 0 ml 08/11/24 06:00 Normal Saline Flush 10 Ml Syr IV 08/11/24 23:59 PRN PRN Sodium Chloride 0 ml 08/11/24 06:00 Normal Saline 10 Ml Vial IJ 08/11/24 23:59 DIRECTED PRN Sterile Water 0 ml 08/11/24 06:00 Water,Injection,Sterile 10 Ml Vial IJ 08/11/24 23:59 DIRECTED PRN PFSH Active Problems Active Problems: Problem Status Onset Code care and examination of lactating mother Acute Z39.1 Bipolar disorder, unspecified Acute F31.9 ADD (attention deficit disorder) Acute F98.8 Marijuana use Acute F12.90 Chronic right sacroiliac joint pain Acute M53.3, G89.29 Headache Acute R51.9 PTSD (post-traumatic stress disorder) Chronic F43.10 Medical History Medical History Post depression Term delivered Intrahepatic cholestasis of in third trimester per M deliver at 37 weeks History of pre-eclampsia in prior , currently Rh negative status during Placenta succenturiata in third trimester as recorded in US 03/26/24 Encounter for induction of labor care, subsequent Pain of right sacroiliac joint 08/2021 [facility] Low-lying placenta in second trimester 01/25 < 2 cm from OS, repeat planned 02/01 and possible need for follow up in third trimester test performed, confirmed Abnormal uterine bleeding (AUB) Presence of subdermal contraceptive implant (03/26/23) Dyspepsia (~2018) 03/13/22-[facility] Bloating (~2018) 03/13/22-[facility] Burping Hearing difficulty Right ear feels plugged, seen by ENT no abnormality noted Paresthesias in left hand Chronic chest pain Per pt. states it was a result of the ADHD medication that was a few years ago Palpitations Abnormal electrocardiography Heart palpitations Oligomenorrhea Upper abdominal pain Workup: CBC/d, CMP, lipase, abd US, abd/pelvic CT -- all WNL; sx better 05/2019, monitor for recurrence Insomnia Chronic right-sided low back pain without sciatica (02/11/18) Attention-deficit hyperactivity disorder, unspecified type Rash Keratosis pilaris Idiopathic acute pancreatitis (09/09/17) Intussusception of jejunum (09/09/17) Non-obstructing, noted on abd/pelvis CT 05/2017 Ganglion cyst of finger of right hand (02/11/18) Surgical History Surgical History cyst excision (03/02/18) ganglion cyst R ring finger-Dr Beard Tobacco Smoking/Tobacco Use Status: Never Alcohol Alcohol Intake: current Alcohol intake frequency: holidays/special occasions only Substance Use Substance use: Never Substance use type: does not use Prental History History 3 Para 3 Hx # Term Pregnancies 3 Multiple births 0 Hx # Pregnancies 0 Ectopic pregnancies 0 AB induced 0 Hx Number of Living Children 3 AB spontaneous 0 Past Pregnancies Del. Date GA/Weeks # Preg Succ Route Wgt Sex Labor Lgth Anesthesia Location Prov Com[facility] 03/23/10 39 Yes vaginal 3458.642 g Male 6h [facility] 09/27/22 39 Yes vaginal 3515.341 g Female [facility]h [facility] 05/26/24 37 No Yes vaginal 3475.085 g Female 1hr 57min [facility] other Delivery Date: 03/23/10 Last Updated by: Valeria Ibrahim CNM Born in [facility] Delivery Date: 09/27/22 Last Updated by: Valeria Ibrahim CNM induced for pre-eclampsia and had PP pre-eclampsia; mag sulfate, [place] Delivery Date: 05/26/24 Last Updated by: Marlyn Smith LPN Intrahepatic Cholestasis of , 3rd Trimester; Induced cervical balloon; pitocin; AROM; Placenta succincuriate Vital Signs and Lab Results Vital Signs Most Recent Vital Signs in EMR: Most Recent Vital Signs Temp Pulse Resp BP Pulse Ox 36.3 C L 67 16 100/70 97 08/11/24 09:08 08/11/24 09:08 08/11/24 09:08 08/11/24 09:08 08/11/24 09:08 Lab Results Blood Type / Crossmatch: Antibody Screen NEGATIVE 08/10/24 Complete Blood Count: White Blood Count 4.65 10^3/uL (4.4-10.8) 08/10/24 11:30 Red Blood Count 4.92 10^6/uL (3.93-5.22) 08/10/24 11:30 Hemoglobin 12.6 g/dL (11.2-15.7) 08/10/24 11:30 Hematocrit 39.2 % (36.0-46.0) 08/10/24 11:30 Platelet Count 222 10^3/uL (130-400) 08/10/24 11:30 Complete Metabolic Panel: No Data to Display Liver Function Panel: No Data to Display Coagulation Panel: No Data to Display Cardiac Panel: No Data to Display Arterial Blood Gas: No Data to Display Venous Blood Gas: No Data to Display Pancreas Panel: No Data to Display Thyroid Panel: No Data to Display Infectious Disease: No Data to Display Blood Cultures: No Data to Display Toxicology Panel: No Data to Display Panel: No Data to Display Imaging and Studies Imaging and Studies Study information below may be from another EMR and interpreted by another provider. Please see original notes in EMR for more complete details. EKG Summary: 03/14: sinus Echocardiogram Summary: 08/13: LVEF 60%, mild MR. Anesthesia Assessment and Plan Anesthesia History Personal History: No History of Anesthesia Complications Family History: No Family History of Anesthesia Complications Exercise Tolerance Exercise Tolerance: Metabolic Equivalents>4 Pertinent Negatives Pertinent Negatives: No Symptoms of GERD, No Major Cardiovascular Symptoms or Complaints and No Major Pulmonary Symptoms or Complaints Cardiac & Pulmonary Exam Cardiac Exam: Normal S1/S2 Heart Sounds Pulmonary Exam: Clear Bilateral Breath Sounds Implantable Cardiac Device Does patient have a Pacemaker or an ICD?: No Airway Exam Known Difficult Airway: No Mallampati Class: 2 Mouth Opening: Normal (> 3cm) Thyromental Distance: Greater than 3 cm Neck Range of Motion: Full ROM Neck Circumference: Normal Teeth Condition: Normal Dentition ASA Classification ASA Score: ASA 2 Emergency Case?: No NPO Status NPO Status: NPO Clears >2 hours, Solids >8 hours Status Status: Not Per Patient Anesthesia Plan Resuscitation Status: Full Code Anesthesia Technique: General Anesthesia Airway Planned: Endotracheal Tube Monitors Used: Standard Monitors Preoperative Comments:: 34 yo female for lap salping. Sig PMHx: ADHD, bipolar, PTSD, anxiety/depression, never smoker, occ EtOH/cannabis.
--- NOTE | 2024-08-11 11:42 | FALL_PTH ---
PATIENT: Lb Robins LOC: [facility] U#:[id number] AGE/SX: 34/F ROOM: RE08/11/[address]: Marlyn Lyons DO : 1990 BED: DIS: 08/11/2024 SPEC #: [id number] RECD: 08/11/24 13:03 STATUS: [facility] #: [id number] ELZA: 08/11/24 11:[address]: Marlyn Lyons DEPT: Surgical Specimen RECD BY: Xena Cheung ENTERED: 08/11/24 13:04 SP TYPE: Fall OTHR DR: Nicolasa Jackson APRN Tissues: 1 - FALLOPIAN TUBE (STERILIZATION) 2 - FALLOPIAN TUBE (STERILIZATION) Procedures: GROSS AND MICRO LEVEL 2 Comments: [id number]
[2024-08-11] MEDS: Bupivacaine 0.25% Pres-Free 30 ML VIAL (11:55)
--- NOTE | 2024-08-11 12:00 | ROE_ITS ---
Date of service: 08/11/24 Time of Service: 12:00 Operative Note Operative Note DATE OF PROCEDURE: 08/11/24 PRE-OP DIAGNOSIS: Undesired fertility POST-OP DIAGNOSIS: same PROCEDURE: Laparoscopic bilateral salpingectomy SURGEON: Marlyn Lyons ASSISTING SURGEON: Nuzhat Contreras ANESTHESIA TYPE: General LMA/ETT Refer to Anesthesia Record ESTIMATED BLOOD LOSS: 5 PATHOLOGY: other (1. Left fallopian tube 2. Right fallopian tube) COMPLICATIONS: None Patient was transported to: PACU Patient's condition: stable Indications: 3 para 3 with undesired fertility Findings: Normal-appearing tubes, ovaries, uterus. No evidence of intra-abdominal pathology or trauma Procedure Description: After full informed consent was obtained and negative status verified, patient was taken the operating suite with an IV running. She was placed in the supine position and endotracheal intubation performed for the administration of general anesthesia with ease. She was then placed in modified dorsolithotomy position in [facility]. She was prepped and draped in usual sterile fashion and a timeout was performed. She had pneumatic compression stockings for DVT prophylaxis and no antibiotic prophylaxis was warranted. Exam under anesthesia revealed a uterus that was midline and mobile. Speculum was inserted into the vaginal vault and a single-tooth tenaculum used to grasp the anterior lip of the cervix. A 1[employer] uterine manipulator was placed within for uterine manipulation. Tenaculum and speculum were removed. Attention was then turned to the abdomen where The infraumbilical area was infiltrated with quarter percent Marcaine. A vertical umbilical incision was made and penetrating Towel clips used to elevate the anterior abdominal wall. Veress needle was inserted and with a maximum pressure of 15 mmHg with CO2 gas a pneumoperitoneum was created. With direct visualization of a 12 mm Optiview scope, scope was placed into the abdomen. Inspection of the abdomen and pelvis were performed and there is no evidence of trauma or pathology noted. At this point a second and third right and left lower quadrant trocar site were placed after infiltration of quarter percent Marcaine under direct visualization. The uterus was elevated. Left fallopian tube identified and grasped. This was cautery transected and removed from the abdomen. A similar procedure was carried out on the right fallopian tube. Both pedicles were noted to be hemostatic and the surgical procedure was terminated. Pneumoperitoneum was released and trocars removed under direct visualization. The infraumbilical fascial incision was closed using 0 Vicryl suture in a [id number] fashion. Skin edges were reapproximated with 4-0 undyed Monocryl and sterile dressings were placed. Hulka uterine manipulator was removed and the patient was returned to the dorsal supine position and awoke from anesthesia without difficulty. She was then taken to the postanesthesia care unit in stable condition. Complications: None apparent Findings: Normal fallopian tubes, ovaries, uterus. Normal-appearing appendix and liver edge. Photographs were taken. Fluids: Crystalloid per anesthesia Pathology: 1. Left fallopian tube 2. Right fallopian tube. EBL: 5 mL
[2024-08-11] MEDS: HYDROmorphone 2 MG/ML SYR IVP ×3 (12:33→13:02)
[2024-08-11] MEDS: Normal Saline 10 ML VIAL IJ (12:36)
--- NOTE | 2024-08-11 13:43 | W.ANESPOSTOP ---
Postoperative Evaluation Date, Time and Location Date Performed: 08/11/24 Time Performed: 13:43 Patient Location: Day Surgery Unit Vital Signs Most Recent Imported Vital Signs: Most Recent Vital Signs Temp Pulse Resp BP Pulse Ox 36.2 C L 52 L 16 98/67 L 98 08/11/24 13:33 08/11/24 13:33 08/11/24 13:33 08/11/24 13:33 08/11/24 13:33 Pain Score Most Recent Pain Score: Most Recent Pain Score Pain Level 3 08/11/24 13:33 Assessment Mental Status: Awake (Alert & Oriented to Patient Baseline) Airway and Respiratory Function: Patent airway with normal (patient baseline) respiratory exam Cardiovascular Function: Hemodynamically Stable Hydration Status: Adequately Hydrated Nausea & Vomiting: No Nausea or Vomiting Pain: Pain is tolerable per patient Peripheral Nerve Block: Patient did not receive a nerve block
[2024-08-11] MEDS: oxyCODONE 5 mg/Acetaminophen 325 mg TAB PO (14:17)
== END 2024-08-11 14:50 | disposition home or self-care (01) ==
PROVIDERS: PCP Nurse Practitioner; Visit Provider Obstetrics & Gynecology
PROC: (CPT 58661; principal; 2024-08-11 09:30)
DX: Z30.2 Encounter for sterilization (principal); F12.90 Cannabis use, unspecified, uncomplicated; F31.9 Bipolar disorder, unspecified; Z79.899 Other long term (current) drug therapy
CPT/HCPCS: 58661; 81025; 88302; J0131; J0665; J1100; J1170; J1805; J1885; J2405; J2704; J3475

== ENCOUNTER 2025-09-13 13:07 | Outpatient (REF) | payer MEDICAID, SELFPAY ==
--- NOTE | 2025-09-13 13:00 | PAPFT_PTH ---
PATIENT: Lb Robins LOC: [facility] U#:[id number] AGE/SX: 35/F ROOM: RE09/13/[address]: Caprice Wyatt NP : 1990 BED: DIS: 09/13/2025 SPEC #: [id number] RECD: 09/13/25 17:44 STATUS: [facility] #: [id number] ELZA: 09/13/25 13:[address]: Caprice Wyatt NP DEPT: [facility] Cytology RECD BY: Xena Cheung ENTERED: 09/13/25 17:44 SP TYPE: PAPFT OTHR DR: Nicolasa Jackson APRN Tissues: 1 - CX/ENDOCX FOR PAP SMEARS Procedures: PAP THIN PREP/[facility] Screening HPV DNA PROBE Comments: [id number] (HPV 16 & 18/45)
== END 2025-09-13 13:08 | disposition home or self-care (01) ==
LOC: LBN 13:07
PROVIDERS: PCP Nurse Practitioner; Visit Provider Nurse Practitioner Women's Health
DX: Z12.4 Encounter for screening for malignant neoplasm of cervix (principal)
CPT/HCPCS: 88142; 87624